=== PATIENT | female | born 1945 | race Caucasian/White ===

== ENCOUNTER 2022-12-03 09:34 | Outpatient (REF) | payer OTHER, SELFPAY ==
[2022-12-03 09:51] LABS: MANUAL DIFF FLAG NO
[2022-12-03 10:13] LABS: Basophils Absolute Auto 0.1 X10*3/uL (0.0-0.2); Basophils Percent Auto 1.4 % (0-2); Eosinophils Absolute Auto 0.3 X10*3/uL (0.0-0.4); Eosinophils Percent Auto 3.6 % (0-4); Hematocrit 44.1 % (37.0-47.0); Hemoglobin 14.7 g/dl (12.0-16.0); Imm Gran Abs Auto 0.03 X10*3/uL (0.00-0.03); Imm Gran Pct Auto 0.4 % (0.0-0.4); Lymphocytes Absolute Auto 2.6 X10*3/uL (1.2-4.9); Lymphocytes Percent Auto 35.7 % (20-40); Mean Corpuscular HGB Conc 33.3 g/dl (31.0-35.0); Mean Corpuscular Hemoglobin 28.9 pg (27.0-33.0); Mean Corpuscular Volume 86.8 fL (80.0-98.0); Mean Platelet Volume 10.4 fL (9.4-12.3); Monocytes Absolute Auto 0.5 X10*3/uL (0.1-1.2); Monocytes Percent Auto 7.4 % (2-11); Neutrophils Absolute Auto 3.7 x10*3/uL (2.0-8.3); Neutrophils Percent Auto 51.5 % (45-73); Platelet Count 369 X10*3/uL (160-400); Red Blood Count 5.08 X10*6/uL (4.20-5.50); Red Cell Distribution Width 12.4 % (11.0-16.0); White Blood Count 7.2 X10*3/uL (4.8-10.8)
[2022-12-03 10:46] LABS: Estimated Average Glucose 171 mg/dL; Hemoglobin A1c % 7.6 %
[2022-12-03 10:55] LABS: Alanine Aminotransferase 18 U/L (0-31); Albumin Level 4.2 g/dL (3.5-5.0); Alkaline Phosphatase 77 U/L (39-117); Anion Gap 15 (12-20); Aspartate Amino Transferase 16 U/L (5-31); Bilirubin Total 0.5 mg/dL (0.0-1.0); Blood Urea Nitrogen 17 mg/dL (9-16); Calcium 9.8 mg/dL (8.4-10.2); Carbon Dioxide 23 mmol/L (22-29); Chloride 105 mmol/L (96-108); Estimated Glomerular Filt Rate 56; Glucose Random 195 mg/dL (60-115); Potassium 4.6 mmol/L (3.3-5.1); Sodium 138 mmol/L (135-145); Total Protein 6.9 g/dL (6.5-8.0)
[2022-12-03 11:10] LABS: Thyroid Stimulating Hormone 2.55 uIU/mL (0.32-4.0)
[2022-12-03 12:33] LABS: Creatinine Urine 130.81 mg/dL; Microalbum/Creatinine Ratio Ur 32.1 ug/mg cr
== END 2022-12-03 09:35 | disposition home or self-care (01) ==
LOC: HO.LAB 09:34
PROVIDERS: PCP Internal Medicine; Visit Provider Internal Medicine
DX: E03.8 Other specified hypothyroidism (principal); E11.9 Type 2 diabetes mellitus without complications; E78.00 Pure hypercholesterolemia, unspecified; I10 Essential (primary) hypertension; I48.91 Unspecified atrial fibrillation
CPT/HCPCS: 36415; 80053; 82043; 83036; 84443; 85025

== ENCOUNTER 2023-02-28 08:40 | Outpatient (REF) | payer OTHER, SELFPAY ==
[2023-02-28 11:03] LABS: Alanine Aminotransferase 18 U/L (0-31); Albumin Level 4.2 g/dL (3.5-5.0); Alkaline Phosphatase 55 U/L (39-117); Anion Gap 18 (12-20); Aspartate Amino Transferase 14 U/L (5-31); Bilirubin Total 0.6 mg/dL (0.0-1.0); Blood Urea Nitrogen 28 mg/dL (9-16); Calcium 10.2 mg/dL (8.4-10.2); Carbon Dioxide 21 mmol/L (22-29); Chloride 106 mmol/L (96-108); Estimated Glomerular Filt Rate 49; Glucose Random 143 mg/dL (60-115); Potassium 4.4 mmol/L (3.3-5.1); Sodium 141 mmol/L (135-145); Total Protein 7.3 g/dL (6.5-8.0)
[2023-02-28 11:07] LABS: Thyroid Stimulating Hormone 3.25 uIU/mL (0.32-4.0)
[2023-02-28 11:10] LABS: Estimated Average Glucose 140 mg/dL; Hemoglobin A1c % 6.5 %
== END 2023-02-28 08:41 | disposition home or self-care (01) ==
LOC: HO.LAB 08:40
PROVIDERS: PCP Internal Medicine; Visit Provider Internal Medicine
DX: E03.8 Other specified hypothyroidism (principal); E11.65 Type 2 diabetes mellitus with hyperglycemia; I10 Essential (primary) hypertension; R80.8 Other proteinuria
CPT/HCPCS: 36415; 80053; 83036; 84443

== ENCOUNTER 2023-05-24 09:52 | Outpatient (REF) | payer OTHER, SELFPAY ==
[2023-05-24 11:27] LABS: Alanine Aminotransferase 18 U/L (0-31); Albumin Level 4.2 g/dL (3.5-5.0); Alkaline Phosphatase 60 U/L (39-117); Anion Gap 15 (12-20); Aspartate Amino Transferase 15 U/L (5-31); Bilirubin Total 0.5 mg/dL (0.0-1.0); Blood Urea Nitrogen 20 mg/dL (9-16); Calcium 9.9 mg/dL (8.4-10.2); Carbon Dioxide 25 mmol/L (22-29); Chloride 105 mmol/L (96-108); Estimated Glomerular Filt Rate > 60; Glucose Random 118 mg/dL (60-115); Potassium 4.2 mmol/L (3.3-5.1); Sodium 141 mmol/L (135-145); Total Protein 7.2 g/dL (6.5-8.0)
[2023-05-24 11:29] LABS: Estimated Average Glucose 137 mg/dL; Hemoglobin A1c % 6.4 % (<6.0)
== END 2023-05-24 09:53 | disposition home or self-care (01) ==
LOC: HO.10HDL 09:52
PROVIDERS: Visit Provider Internal Medicine
DX: E11.65 Type 2 diabetes mellitus with hyperglycemia (principal); I10 Essential (primary) hypertension; I48.91 Unspecified atrial fibrillation; M70.51 Other bursitis of knee, right knee; Z79.01 Long term (current) use of anticoagulants
CPT/HCPCS: 36415; 80053; 83036

== ENCOUNTER 2023-08-25 09:37 | Outpatient (REF) | payer OTHER, SELFPAY ==
[2023-08-25 10:45] LABS: MANUAL DIFF FLAG NO
[2023-08-25 10:54] LABS: Basophils Absolute Auto 0.1 X10*3/uL (0.0-0.2); Basophils Percent Auto 1.3 % (0-2); Eosinophils Absolute Auto 0.3 X10*3/uL (0.0-0.4); Eosinophils Percent Auto 4.7 % (0-4); Hematocrit 43.8 % (37.0-47.0); Hemoglobin 14.5 g/dl (12.0-16.0); Imm Gran Abs Auto 0.02 X10*3/uL (0.00-0.03); Imm Gran Pct Auto 0.3 % (0.0-0.4); Lymphocytes Percent Auto 33.1 % (20-40); Mean Corpuscular HGB Conc 33.1 g/dl (31.0-35.0); Mean Corpuscular Hemoglobin 29.5 pg (27.0-33.0); Mean Platelet Volume 10.7 fL (9.4-12.3); Monocytes Absolute Auto 0.6 X10*3/uL (0.1-1.2); Neutrophils Absolute Auto 3.2 x10*3/uL (2.0-8.3); Neutrophils Percent Auto 51.6 % (45-73); Platelet Count 361 X10*3/uL (160-400); Red Blood Count 4.92 X10*6/uL (4.20-5.50); Red Cell Distribution Width 12.4 % (11.0-16.0); White Blood Count 6.1 X10*3/uL (4.8-10.8)
[2023-08-25 10:59] LABS: Estimated Average Glucose 146 mg/dL; Hemoglobin A1c % 6.7 % (<6.0)
[2023-08-25 11:33] LABS: Alanine Aminotransferase 23 U/L (0-31); Albumin Level 4.2 g/dL (3.5-5.0); Alkaline Phosphatase 65 U/L (39-117); Anion Gap 15 (12-20); Aspartate Amino Transferase 19 U/L (5-31); Bilirubin Total 0.5 mg/dL (0.0-1.0); Blood Urea Nitrogen 18 mg/dL (9-16); Calcium 9.9 mg/dL (8.4-10.2); Carbon Dioxide 26 mmol/L (22-29); Chloride 103 mmol/L (96-108); Cholesterol 169 mg/dL (<200); Estimated Glomerular Filt Rate 57; Glucose Random 111 mg/dL (60-115); HDL Cholesterol 60 mg/dL (>40); LDL Cholesterol Calculated 82 mg/dL (<100); Potassium 4.4 mmol/L (3.3-5.1); Sodium 140 mmol/L (135-145); Total Protein 7.3 g/dL (6.5-8.0); Triglycerides 137 mg/dL (<150)
[2023-08-25 11:55] LABS: Creatinine Urine 158.97 mg/dL; Microalbum/Creatinine Ratio Ur 40.8 ug/mg cr (<30)
== END 2023-08-25 09:38 | disposition home or self-care (01) ==
LOC: HO.10HDL 09:37
PROVIDERS: Visit Provider Internal Medicine
DX: E11.65 Type 2 diabetes mellitus with hyperglycemia (principal); I10 Essential (primary) hypertension; I48.91 Unspecified atrial fibrillation; Z79.01 Long term (current) use of anticoagulants
CPT/HCPCS: 36415; 80053; 80061; 82043; 82570; 83036; 85025

== ENCOUNTER 2023-11-29 09:55 | Outpatient (REF) | payer OTHER, SELFPAY ==
[2023-11-29 11:09] LABS: Alanine Aminotransferase 21 U/L (0-31); Albumin Level 4.2 g/dL (3.5-5.0); Alkaline Phosphatase 58 U/L (39-117); Anion Gap 15 (12-20); Aspartate Amino Transferase 17 U/L (5-31); Bilirubin Total 0.5 mg/dL (0.0-1.0); Blood Urea Nitrogen 23 mg/dL (9-16); Calcium 9.8 mg/dL (8.4-10.2); Carbon Dioxide 25 mmol/L (22-29); Chloride 103 mmol/L (96-108); Estimated Glomerular Filt Rate > 60; Glucose Random 133 mg/dL (60-115); Potassium 4.3 mmol/L (3.3-5.1); Sodium 139 mmol/L (135-145); Total Protein 7.3 g/dL (6.5-8.0)
[2023-11-29 11:13] LABS: Thyroid Stimulating Hormone 4.09 uIU/mL (0.32-4.0)
[2023-11-29 15:13] LABS: Estimated Average Glucose 151 mg/dL; Hemoglobin A1c % 6.9 % (<6.0)
== END 2023-11-29 09:56 | disposition home or self-care (01) ==
LOC: HO.10HDL 09:55
PROVIDERS: Visit Provider Internal Medicine
DX: E11.9 Type 2 diabetes mellitus without complications (principal); I10 Essential (primary) hypertension; R80.8 Other proteinuria; Z00.00 Encounter for general adult medical examination without abnormal findings
CPT/HCPCS: 36415; 80053; 83036; 84443

== ENCOUNTER 2024-02-28 09:27 | Outpatient (REF) | payer MEDICARE, SELFPAY ==
[2024-02-28 09:38] LABS: MANUAL DIFF FLAG NO
[2024-02-28 09:59] LABS: Basophils Absolute Auto 0.1 X10*3/uL (0.0-0.2); Basophils Percent Auto 1.4 % (0-2); Eosinophils Absolute Auto 0.3 X10*3/uL (0.0-0.4); Eosinophils Percent Auto 3.8 % (0-4); Hematocrit 41.9 % (37.0-47.0); Hemoglobin 14.1 g/dl (12.0-16.0); Imm Gran Abs Auto 0.02 X10*3/uL (0.00-0.03); Imm Gran Pct Auto 0.3 % (0.0-0.4); Lymphocytes Absolute Auto 2.2 X10*3/uL (1.2-4.9); Lymphocytes Percent Auto 32.7 % (20-40); Mean Corpuscular HGB Conc 33.7 g/dl (31.0-35.0); Mean Corpuscular Hemoglobin 29.9 pg (27.0-33.0); Mean Corpuscular Volume 88.8 fL (80.0-98.0); Mean Platelet Volume 10.4 fL (9.4-12.3); Monocytes Absolute Auto 0.7 X10*3/uL (0.1-1.2); Monocytes Percent Auto 9.8 % (2-11); Neutrophils Absolute Auto 3.5 x10*3/uL (2.0-8.3); Platelet Count 337 X10*3/uL (160-400); Red Blood Count 4.72 X10*6/uL (4.20-5.50); Red Cell Distribution Width 12.9 % (11.0-16.0); White Blood Count 6.7 X10*3/uL (4.8-10.8)
[2024-02-28 10:09] LABS: Estimated Average Glucose 143 mg/dL; Hemoglobin A1c % 6.6 % (<6.0)
[2024-02-28 10:54] LABS: Alanine Aminotransferase 19 U/L (0-31); Albumin Level 4.2 g/dL (3.5-5.0); Alkaline Phosphatase 55 U/L (39-117); Anion Gap 14 (12-20); Aspartate Amino Transferase 18 U/L (5-31); Bilirubin Total 0.5 mg/dL (0.0-1.0); Blood Urea Nitrogen 19 mg/dL (9-16); Calcium 9.4 mg/dL (8.4-10.2); Carbon Dioxide 26 mmol/L (22-29); Chloride 104 mmol/L (96-108); Estimated Glomerular Filt Rate 54; Glucose Random 136 mg/dL (60-115); Potassium 4.6 mmol/L (3.3-5.1); Sodium 139 mmol/L (135-145); Total Protein 7.1 g/dL (6.5-8.0)
[2024-02-28 10:58] LABS: Thyroid Stimulating Hormone 4.07 uIU/mL (0.32-4.0)
== END 2024-02-28 09:28 | disposition home or self-care (01) ==
LOC: HO.LAB 09:27
PROVIDERS: PCP Internal Medicine; Visit Provider Internal Medicine
DX: E03.9 Hypothyroidism, unspecified (principal); E11.9 Type 2 diabetes mellitus without complications; I10 Essential (primary) hypertension; I48.91 Unspecified atrial fibrillation; R80.8 Other proteinuria; Z79.01 Long term (current) use of anticoagulants
CPT/HCPCS: 36415; 80053; 83036; 84443; 85025

== ENCOUNTER 2024-05-24 09:16 | Outpatient (REF) | payer MEDICARE, SELFPAY ==
[2024-05-24 11:08] LABS: Estimated Average Glucose 151 mg/dL; Hemoglobin A1C 183.8277 umol/L; Hemoglobin A1c % 6.9 % (<6.0)
[2024-05-24 11:17] LABS: Alanine Aminotransferase 20 U/L (0-31); Albumin Level 4.1 g/dL (3.5-5.0); Alkaline Phosphatase 56 U/L (39-117); Anion Gap 12 (12-20); Aspartate Amino Transferase 21 U/L (5-31); Bilirubin Total 0.5 mg/dL (0.0-1.0); Blood Urea Nitrogen 19 mg/dL (9-16); Calcium 9.6 mg/dL (8.4-10.2); Carbon Dioxide 28 mmol/L (22-29); Chloride 105 mmol/L (96-108); Estimated Glomerular Filt Rate 57; Glucose Random 132 mg/dL (60-115); Potassium 4.1 mmol/L (3.3-5.1); Sodium 141 mmol/L (135-145); Total Protein 6.8 g/dL (6.5-8.0)
[2024-05-24 11:24] LABS: Thyroid Stimulating Hormone 4.13 uIU/mL (0.32-4.0)
== END 2024-05-24 09:17 | disposition home or self-care (01) ==
LOC: HO.10HDL 09:16
PROVIDERS: Visit Provider Internal Medicine
DX: E03.9 Hypothyroidism, unspecified (principal); E11.9 Type 2 diabetes mellitus without complications; I48.91 Unspecified atrial fibrillation; Z79.01 Long term (current) use of anticoagulants
CPT/HCPCS: 36415; 80053; 83036; 84443

== ENCOUNTER 2024-09-14 08:52 | Outpatient (REF) | payer MEDICARE, SELFPAY ==
[2024-09-14 10:15] LABS: MANUAL DIFF FLAG NO
[2024-09-14 10:24] LABS: Basophils Absolute Auto 0.1 X10*3/uL (0.0-0.2); Basophils Percent Auto 1.5 % (0-2); Eosinophils Absolute Auto 0.2 X10*3/uL (0.0-0.4); Hemoglobin 14.1 g/dl (12.0-16.0); Imm Gran Abs Auto 0.01 X10*3/uL (0.00-0.03); Imm Gran Pct Auto 0.1 % (0.0-0.4); Lymphocytes Absolute Auto 2.3 X10*3/uL (1.2-4.9); Lymphocytes Percent Auto 30.9 % (20-40); Mean Corpuscular HGB Conc 32.8 g/dl (31.0-35.0); Mean Corpuscular Hemoglobin 29.3 pg (27.0-33.0); Mean Corpuscular Volume 89.4 fL (80.0-98.0); Mean Platelet Volume 10.4 fL (9.4-12.3); Monocytes Absolute Auto 0.7 X10*3/uL (0.1-1.2); Monocytes Percent Auto 9.9 % (2-11); Neutrophils Percent Auto 54.6 % (45-73); Platelet Count 326 X10*3/uL (160-400); Red Blood Count 4.81 X10*6/uL (4.20-5.50); Red Cell Distribution Width 12.9 % (11.0-16.0); White Blood Count 7.3 X10*3/uL (4.8-10.8)
[2024-09-14 11:04] LABS: Estimated Average Glucose 151 mg/dL; Hemoglobin A1C 189.4156 umol/L; Hemoglobin A1c % 6.9 % (<6.0); Total Hemoglobin (HGBA1C) 3644.2723 umol/L
[2024-09-14 11:15] LABS: Alanine Aminotransferase 25 U/L (0-31); Albumin Level 4.1 g/dL (3.5-5.0); Alkaline Phosphatase 63 U/L (39-117); Anion Gap 14 (12-20); Aspartate Amino Transferase 20 U/L (5-31); Bilirubin Total 0.6 mg/dL (0.0-1.0); Blood Urea Nitrogen 22 mg/dL (9-16); Calcium 9.1 mg/dL (8.4-10.2); Carbon Dioxide 23 mmol/L (22-29); Chloride 108 mmol/L (96-108); Cholesterol 138 mg/dL (<200); Estimated Glomerular Filt Rate 52; Glucose Random 138 mg/dL (60-115); HDL Cholesterol 57 mg/dL (>40); LDL Cholesterol Calculated 54 mg/dL (<100); Potassium 3.9 mmol/L (3.3-5.1); Sodium 141 mmol/L (135-145); Total Protein 7.2 g/dL (6.5-8.0); Triglycerides 136 mg/dL (<150)
[2024-09-14 11:26] LABS: Creatinine Urine 148.38 mg/dL; Microalbum/Creatinine Ratio Ur 185.3 ug/mg cr (<30)
[2024-09-14 11:32] LABS: Thyroid Stimulating Hormone 4.53 uIU/mL (0.32-4.0)
== END 2024-09-14 08:53 | disposition home or self-care (01) ==
LOC: HO.10HDL 08:52
PROVIDERS: Visit Provider Internal Medicine
DX: E03.9 Hypothyroidism, unspecified (principal); E11.9 Type 2 diabetes mellitus without complications; E78.00 Pure hypercholesterolemia, unspecified; Z79.01 Long term (current) use of anticoagulants
CPT/HCPCS: 36415; 80053; 80061; 82043; 82570; 83036; 84443; 85025

== ENCOUNTER 2024-12-12 08:57 | Outpatient (REF) | payer MEDICARE, SELFPAY ==
[2024-12-12 10:15] LABS: Estimated Average Glucose 157 mg/dL; Hemoglobin A1C 193.3229 umol/L; Hemoglobin A1c % 7.1 % (<6.0); Total Hemoglobin (HGBA1C) 3604.8618 umol/L
[2024-12-12 10:43] LABS: Alanine Aminotransferase 17 U/L (0-31); Alkaline Phosphatase 77 U/L (39-117); Anion Gap 17 (12-20); Aspartate Amino Transferase 22 U/L (5-31); Bilirubin Total 0.7 mg/dL (0.0-1.0); Blood Urea Nitrogen 28 mg/dL (9-16); Calcium 9.3 mg/dL (8.4-10.2); Carbon Dioxide 22 mmol/L (22-29); Chloride 107 mmol/L (96-108); Estimated Glomerular Filt Rate 45; Glucose Random 162 mg/dL (60-115); Potassium 4.3 mmol/L (3.3-5.1); Sodium 142 mmol/L (135-145)
== END 2024-12-12 08:58 | disposition home or self-care (01) ==
LOC: HO.10HDL 08:57
PROVIDERS: Visit Provider Internal Medicine
DX: E03.9 Hypothyroidism, unspecified (principal); E11.9 Type 2 diabetes mellitus without complications; E78.00 Pure hypercholesterolemia, unspecified; I34.0 Nonrheumatic mitral (valve) insufficiency; I48.91 Unspecified atrial fibrillation; Z79.01 Long term (current) use of anticoagulants
CPT/HCPCS: 36415; 80053; 83036

== ENCOUNTER 2025-03-13 08:40 | Outpatient (REF) | payer MEDICARE, SELFPAY ==
--- OUTSIDE RECORDS SUMMARY | 2025-03-13 08:57 | XMS_ITS | Encounter Summary ---
Author Organization [facility] Address [address] [place] [address] Phone Care Team Providers Care Pit Slagman Name Role Phone Whitney Monreal MD Primary Care Provi lucero Katie Pollock MD Primary Care Provid er Betsy Pineda MD Primary Care Provider Encounter Details Date Type Department Care Team (Late st Contact Info) Description 10/02/2020 Ancillary Orders Virtual Department 30 [place] [address] Whitney Monreal MD [address] [place] [address] [email or web address] Breast screening Social History Tobacco Use Types Packs/Day Years Used Date Smoking Tobacco: Never Smokeless Tobacco: Never Alcohol Use Standard Drinks/Week Comments Yes 4 (1 standard drink = 0.6 oz pur e alcohol) Comments No Sex and Gender Information Value Date Recorded Sex Assigned at Not on file Legal Sex Female 4:26 PM EST Gender Identity Not on file Sexual Orientation Not on file documented as of this encounter Plan of Treatment Upcoming Encounters Date Type Department Care Team (Late st Contact Info) Description 04/12/2024 Procedure Pass [facility] [address] [place] [address] 03/19/2025 9:15 AM EDT Appointment Echo [facility] [address] [place] [address] Nathan Yoon MD 22 [facility], [address] [place] [address] 04/11/2025 9:20 AM EDT Office Visit [facility] [address]rd Floor, [address] [place] [address] Nathan Yoon MD 22 [facility], [address] [address] [email or web address] documented as of this encounter Visit Diagnoses Diagnosis Breast screening Breast screening, unspecified documented in this encounter Care Teams Pit Slagman Relationship Specialty Start Date End Date Whitney Monreal MD [email or web address] PCP - General 05/17/1712/23 Katie Pollock MD [address] [address] [email or web address] PCP - General Family Medicine 12/24/21 1 08/24/21 Betsy Pineda MD [address] [place] [phone] PCP - General Internal Medicine 06/25/22 documented as of this encounter Additional Source Comments The information contained in this document represents components of the legal health record. It is not the complete legal health record.[facility]
[2025-03-13 11:10] LABS: Alanine Aminotransferase 25 U/L (0-31); Albumin Level 4.3 g/dL (3.5-5.0); Alkaline Phosphatase 75 U/L (39-117); Anion Gap 15 (12-20); Aspartate Amino Transferase 29 U/L (5-31); Blood Urea Nitrogen 21 mg/dL (9-16); Calcium 9.4 mg/dL (8.4-10.2); Carbon Dioxide 23 mmol/L (22-29); Chloride 107 mmol/L (96-108); Estimated Glomerular Filt Rate > 60; Potassium 4.5 mmol/L (3.3-5.1); Sodium 140 mmol/L (135-145); Total Protein 7.1 g/dL (6.5-8.0)
[2025-03-13 11:28] LABS: Hemoglobin A1C 303.1574 umol/L; Thyroid Stimulating Hormone 4.20 uIU/mL (0.32-4.0); Total Hemoglobin (HGBA1C) 5330.5711 umol/L
== END 2025-03-13 08:41 | disposition home or self-care (01) ==
LOC: HO.10HDL 08:40
PROVIDERS: Visit Provider Internal Medicine
DX: I48.0 Paroxysmal atrial fibrillation (principal); I34.0 Nonrheumatic mitral (valve) insufficiency; E03.9 Hypothyroidism, unspecified; E11.9 Type 2 diabetes mellitus without complications; L25.3 Unspecified contact dermatitis due to other chemical products
CPT/HCPCS: 36415; 80053; 83036; 84443

== ENCOUNTER 2025-06-13 09:27 | Outpatient (REF) | payer MEDICARE, SELFPAY ==
[2025-06-13 10:16] LABS: MANUAL DIFF FLAG NO
[2025-06-13 10:39] LABS: Hematocrit 39.0 % (37.0-47.0); Hemoglobin 13.1 g/dl (12.0-16.0); Imm Gran Abs Auto 0.03 X10*3/uL (0.00-0.03); Imm Gran Pct Auto 0.4 % (0.0-0.4); Lymphocytes Absolute Auto 2.2 X10*3/uL (1.2-4.9); Mean Corpuscular HGB Conc 33.6 g/dl (31.0-35.0); Mean Corpuscular Hemoglobin 30.0 pg (27.0-33.0); Mean Corpuscular Volume 89.4 fL (80.0-98.0); NRBC Abs Auto 0.000 X10*3/uL (0.0-0.012); NRBC Pct Auto 0.0 /100WBC (0.0-0.2); Platelet Count 323 X10*3/uL (160-400); Red Blood Count 4.36 X10*6/uL (4.20-5.50); White Blood Count 7.4 X10*3/uL (4.8-10.8)
--- OUTSIDE RECORDS SUMMARY | 2025-06-13 10:50 | XMS_ITS | Encounter Summary ---
Author Organization [facility] Address [address] [place] [address] [place] [address] Phone Care Team Providers Care Car Body Designer Name Role Phone Whitney Monreal MD Primary Care Provi lucero Katie Pollock MD Primary Care Provid er Betsy Pineda MD Primary Care Provider Encounter Details Date Type Department Care Team (Late st Contact Info) Description 10/02/2020 Ancillary Orders Virtual Department 30 [place] [address] Whitney Monreal MD [address] [place] [address] [email or web address] Breast screening Social History Tobacco Use Types [...] Care Team (Late st Contact Info) Description 08/14/2025 8:30 AM EST Appointment [facility] [place] [address] [facility] 3rd [place] [address] Kalani Gallegos PAJeannette [address] [place] [address] [email or web address] 08/21/2025 10:30 AM EST Office Visit [facility] 22 [facility] 3rd Floor, [address] [place] [address] Kalani Gallgeos PA-C [address] [place] [address] [email or web address] documented as of this encounter Visit Diagnoses Diagnosis Breast screening Breast screening, unspecified documented in this encounter Care Teams Car Body Designer Relationship Specialty Start Date End Date Whitney Monreal MD [email or web address] PCP - General 05/17/1712/23 Katie Pollock MD 22 [facility] [address] [place] [address] [email or web address] PCP - General Family Medicine 12/24/21 1 08/24/21 Betsy Pineda MD [address] [place] [address] [phone] PCP - General Internal Medicine 06/25/22 documented as of this encounter Additional Source Comments The information contained in this document represents components of the legal health record. It is not the complete legal health record.[facility]
--- OUTSIDE RECORDS SUMMARY | 2025-06-13 10:50 | XMS_ITS | Encounter Summary ---
Author Organization [facility] Address [address] [place] [address] [place] [address] Phone Care Team Providers Care Manifold Operator Name Role Phone Whitney Monreal MD Primary Care Provi lucero Katie Pollock MD Primary Care Provid er Betsy Pineda MD Primary Care Provider Encounter Details Date Type Department Care Team (Late st Contact Info) Description 10/01/2020 Procedure Pass [facility] 30 [place] [address] Social History Tobacco Use Types Packs/Day Years [...] 08/14/2025 8:30 AM EST Appointment [facility] [address] [place] [address] Kalani Gallegos PA-C 50 [place] [address] 08/21/2025 10:30 AM EST Office Visit [facility] [address] Floor, [address] [place] [address] Kalani Gallegos PA-C [address] [place] [address] [email or web address] documented as of this encounter Visit Diagnoses Not on filedocumented in this encounter Care Teams Manifold Operator Relationship Specialty Start Date End Date Whitney Monreal MD [email or web address] PCP - General 05/17/1712/23 Katie Pollock MD [address] [address] [email or web address] PCP - General Family Medicine 12/24/21 1 08/24/21 Betsy Pineda MD [address] [place] [address] [phone] PCP - General Internal Medicine 06/25/22 documented as of this encounter Additional Source Comments The information contained in this document represents components of the legal health record. It is not the complete legal health record.[facility]
--- OUTSIDE RECORDS SUMMARY | 2025-06-13 10:52 | XMS_ITS | Encounter Summary ---
Author Organization [facility] Address [address] [facility] [address] [place] [address] Phone Care Team Providers Care Strap Making Machine Operator Name Role Phone Katie Pollock MD Primary Care Provid er Betsy Pineda MD Primary Care Provider Reason for Visit * Reason Onset Date Comments Medication Refill 02/22/2022 Encounter Details Date Type Department Care Team (Late st Contact Info) Description 02/22/2022 [facility] [address] [place] [address] Katie Pollock MD [address] [address] [email or web address] Medication Refill Social History Tobacco Use Types Packs/Day Years Used Date Smoking Tobacco: Never Smokeless Tobacco: Never Alcohol Use Standard Drinks/Week Comments Yes 2 (1 standard drink = 0.6 oz pur e alcohol) Child or Family Care Answer Date Record ed Do you have problems with on e of the following making it difficult for you to work, study, or receive health care? No 12/24/2021 Education Answer Date Recorded Are you interested in help w ith more adult education (for example, completing high school, GED, job training, learning the Irish language, technical skills, or developing parenting skills)? I choose not to answer 12/24/2021 Are you concerned about learning? Not on file 12/24/2021 No 12/24/2021 Yes 12/24/2021 Food Answer Date Recorded Within the past 6 months we worried whether our food would run out before we got money to buy more. Often True 022 Within the past 6 months the food we bought just didn't last and we didn't have enough money to get more. Sometimes True 11/30 Residential Stability Answer Date Recor ded What is your housing situation today? I choose n ot to answer 12/24/2021 How many times have you move d in the past 12 months? Zero (I did not move) 12/24/2021 Paying for Meds Answer Date Recorded Do you have trouble paying for medicines? No 12/24/2021 Paying Utility Bills Answer Date Record ed Do you have trouble paying your heating or elect ricity bill? No 12/24/2021 Transportation Answer Date Recorded Has the lack of transportati on kept you from medical appointments or from getting medications? No 12/24/2021 Unemployment Answer Date Recorded Are you currently unemployed or working on a part-time or temporary basis, and looking for work? No 12/24/2021 Comments No Sex and Gender Information Value Date Recorded Sex Assigned at Not on file Legal Sex Female 4:26 PM EST Gender Identity Not on file Sexual Orientation Not on file documented as of this encounter Progress Notes * Sandrita Alvarenga - 02/23/2022 7:41 AM EDT BMP pended. * Katie Pollock MD - 02/22/2022 6:14 PM EDT Please pend bmp dx code htn * Tracey Mosley MA - 02/22/2022 4:24 PM EDT At least one Rx below has no protocol and needs review. INSTRUCTIONS FOR CLINICAL STAFF (Steps for MA/RN to complete): n/a Visit Info ??? Last visit: 12/24/2021 (Katie Pollock MD) > Requested f/u: Return in about 3 months (around 03/26/2022) for Recheck. ??? Upcoming visit: 04/01/2022 (Katie Pollock MD) ACTIONS TAKEN BY Tracey Mosley - Refill protocol passed: no action needed. AV Elsi Blockers Rx Protocol (on HTN Registry) ??? Visit in the past 12 months: Yes ??? Clinical criteria: - BP within last 6 months: 150/78 on 02/15/2022 - Last HR: 74 on 02/15/2022 Rx(s) without protocol Renewal is at prescriber discretion. - potassium chloride Health Maintenance Due Topic Date Due ??? HEPATITIS C SCREENING Never done ??? ZOSTER VACCINES (2 of 3) 04/17/2013 ??? DIABETIC EYE EXAM Never done ??? Adult Td,Tdap Booster 02/24/2021 ??? COVID-19 VACCINE (4 - Booster for Pfizer series) 04/15/2021 ??? HEMOGLOBIN A1C 03/23/2022 * Edi iVllela - 02/22/2022 12:15 PM EDT METOPROLOL 25mg 90 days supply and Potassium 10mg to be sent over to [facility] in [place] documented in this encounter Plan of Treatment Upcoming Encounters Date Type Department Care Team (Late st Contact Info) Description 08/14/2025 8:30 AM EST Appointment [facility] [address]rd [place] [address] Kalani Gallegos PA-C [address] [place] [address] 08/21/2025 10:30 AM EST Office Visit [facility] [address] Floor, [address] [place] [address] Kalani Gallegos PAJeannette [address] [place] [phone] [email or web address] documented as of this encounter Visit Diagnoses Diagnosis Essential hypertension- Primary Unspecified essential hypertension documented in this encounter Care Teams Strap Making Machine Operator Relationship Specialty Start Date End Date Katie Pollock MD [address] [address] [email or web address] PCP - General Family Medicine 12/24/21 1 08/24/21 Betsy Pineda MD [address] [place] [phone] PCP - General Internal Medicine 06/25/22 documented as of this encounter Additional Source Comments The information contained in this document represents components of the legal health record. It is not the complete legal health record.[facility]
--- OUTSIDE RECORDS SUMMARY | 2025-06-13 10:53 | XMS_ITS | Encounter Summary ---
Author Organization [facility] Address [address] [place] [address] [place] [address] Phone Care Team Providers Care Industrial Manufacturing Technician Name Role Phone Whitney Monreal MD Primary Care Provi lucero Katie Pollock MD Primary Care Provid er Betsy Pineda MD Primary Care Provider Encounter Details Date Type Department Care Team (Late st Contact Info) Description 04/29/2021 Transcribe Orders Virtual Department 30 [place] [address] Whitney Monreal MD [address] [place] [address] [email or web address] Breast screening (Primary Dx); Other specified disorders of bone density and structure, unspecified site Social History Tobacco Use Types Packs/Day Years [...] 08/14/2025 8:30 AM EST Appointment [facility] [address] [place] [address] Kalani Gallegos PAJeannette 50 [place] [address] 08/21/2025 10:30 AM EST Office [facility] 3[facility], [address] [place] [address] Kalani Gallegos PA-C 50 [place] [address] documented as of this encounter Results * BD DXA AXIAL (SPINE) WITH HIP (06/30/2021 2:08 PM EST) Anatomical Region Laterality Modality Bone Density Bone Density 06/30/2021 3:05 PM EST Impressions 06/30/2021 3:43 PM EST Normal lumbar spine and bilateral hip bone density. Mild mild increase in lumbar spine bone density and minimal decrease in bilateral hip bone density since 2013. Narrative 06/30/2021 3:43 PM EST COMPARISON: 09/11/2013. BONE DENSITY FINDINGS: History: This is a 75-year-old postmenopausal female. Evaluation of the lumbar spine and hips was performed and felt to be technically adequate. L3-L4 vertebral bodies total bone mineral density was calculated at 1.110 gm/cm2 with a T-score of 0.1 falling within the WHO classification of normal. Z-score of 2.5. 11.7% increase in bone density which is statistically significant. Right femoral neck bone mineral density was calculated at 0.967 gm/cm2 with a T- score of 1.1 falling within the WHO classification of normal. Z-score of 3.1. Total Right hip bone mineral density was calculated at 1.043 gm/cm2 with a T- score of 0.8 falling within the WHO classification of normal. Z-score of 2.5. 2.7% decrease in bone density which is statistically significant. Left femoral neck bone mineral density was calculated at 0.879 gm/cm2 with a T- score of 0.3 falling within the WHO classification of normal. Z-score of 2.3. Total Left hip bone mineral density was calculated at 0.993 gm/cm2 with a T- score of 0.4 falling within the WHO classification of normal. Z-score of 2.1. 5.7% decrease in bone density which is statistically significant. Procedure Note Deni Lau MD - 06/30/2021 COMPARISON: 09/11/2013. BONE DENSITY FINDINGS: History: This is a 75-year-old postmenopausal female. Evaluation of the lumbar spine and hips was performed and felt to betechnically adequate. L3-L4 vertebral bodies total bone mineral density was calculated at 1.110gm/cm2 with a T-score of 0.1 falling within the WHO classification ofnormal. Z-score of 2.5. 11.7% increase in bone density which isstatistically significant. Right femoral neck bone mineral density was calculated at 0.967 gm/va7pzww a T- score of 1.1 falling within the WHO classification of normal.Z-score of 3.1. Total Right hip bone mineral density was calculated at 1.043 gm/cm2 with aT- score of 0.8 falling within the WHO classification of normal. Z-scoreof 2.5. 2.7% decrease in bone density which is statisticallysignificant. Left femoral neck bone mineral density was calculated at 0.879 gm/cm2 witha T- score of 0.3 falling within the WHO classification of normal.Z-score of 2.3. Total Left hip bone mineral density was calculated at 0.993 gm/cm2 with aT-score of 0.4 falling within the WHO classification of normal. Z-scoreof 2.1. 5.7% decrease in bone density which is statisticallysignificant. IMPRESSION: Normal lumbar spine and bilateral hip bone density. Mild mild increase inlumbar spine bone density and minimal decrease in bilateral hip bonedensity since 2013. Whitney QUEZADA BD BONE DENSITY DEXA Final Result * BI MAMMOGRAM SCREENING WITH TOMOSYNTHESIS WITH CAD (BILATERAL) (06/30/2021 1:50 PM EST) Anatomical Region Laterality Modality Breast Left, Breast Right, Breast Bilateral Bila teral Mammography 06/30/2021 2:08 PM EST Impressions 06/30/2021 2:11 PM EST No findings suspicious for malignancy are identified. In the absence of a worrisome palpable abnormality, annual screening mammography is recommended. BI-RADS CATEGORY: 1 - Negative. DENSITY: There are scattered fibroglandular densities. Narrative 06/30/2021 2:11 PM EST COMPARISON: 06/26/2008 through 02/15/2018 Bilateral 3-D tomosynthesis with 2-D reconstructions in the CC and MLO projection. Computer-aided detection system was utilized. No new mass, asymmetry, architectural distortion or suspicious calcifications have become apparent on either side. Procedure Note Hilton Carrion MD - 06/30/2021 COMPARISON: 06/26/2008 through 02/15/2018 Bilateral 3-D tomosynthesis with 2-D reconstructions in the CC and MLOprojection. Computer-aided detection system was utilized. No new mass, asymmetry, architectural distortion or suspiciouscalcifications have become apparent on either side. IMPRESSION: No findings suspicious for malignancy are identified. In the absence of aworrisome palpable abnormality, annual screening mammography isrecommended. BI-RADS CATEGORY: 1 - Negative. DENSITY: There are scattered fibroglandular densities. Whitney Monreal MD [facility] Fin al Result documented in this encounter Visit Diagnoses Diagnosis Breast screening- Primary Breast screening, unspecified Other specified disorders of bone density and structure, unspecified site Other specified disorders of bone density and structure, unspecified site Breast screening Breast screening, unspecified documented in this encounter Care Teams Industrial Manufacturing Technician Relationship Specialty Start Date End Date Whitney Monreal MD [email or web address] PCP - General 05/17/1712/23 Katie Pollock MD 22 [facility] [address] [place] [address] [email or web address] PCP - General Family Medicine 12/24/21 1 08/24/21 Betsy Pineda MD [address] [phone] PCP - General Internal Medicine 06/25/22 documented as of this encounter Additional Source Comments The information contained in this document represents components of the legal health record. It is not the complete legal health record.[facility]
--- OUTSIDE RECORDS SUMMARY | 2025-06-13 10:54 | XMS_ITS | Encounter Summary ---
Author Organization [facility] Address [address] [place] [address] [place] [address] Phone Care Team Providers Care Proposal Manager Writer Name Role Phone Whitney Monreal MD Primary Care Provi lucero Katie Pollock MD Primary Care Provid er Betsy Pineda MD Primary Care Provider Encounter Details Date Type Department Care Team (Late st Contact Info) Description 09/28/2018 Procedure Pass [facility] Endoscopy Admitting Dept Virtual Department 30 [place] [address] Social History Tobacco Use Types Packs/Day Years [...] Appointment [facility] [address] [place] [address] Kalani Gallegos PA-C [address] [place] [address] 08/21/2025 10:30 AM EST Office Visit [facility] [address] Floor, [address] [place] [address] Kalani Gallegos PA-C 50 [place] [address] [email or web address] documented as of this encounter Visit Diagnoses Not on filedocumented in this encounter Care Teams Proposal Manager Writer Relationship Specialty Start Date End Date Whitney Monreal MD [email or web address] PCP - General 05/17/1712/23 Katie Pollock MD [address] [address] [email or web address] PCP - General Family Medicine 12/24/21 1 08/24/21 Betsy Pineda MD [address] [place] [phone] PCP - General Internal Medicine 06/25/22 documented as of this encounter Additional Source Comments The information contained in this document represents components of the legal health record. It is not the complete legal health record.[facility]
--- OUTSIDE RECORDS SUMMARY | 2025-06-13 10:54 | XMS_ITS | Encounter Summary ---
Author Organization [facility] Address [address] [place] [phone] Phone Care Team Providers Care Local Intermodal Truck Driver Name Role Phone Whitney Monreal MD Primary Care Provi lucero Katie Pollock MD Primary Care Provid er Betsy Pineda MD Primary Care Provider Encounter Details Date Type Department Care Team (Late st Contact Info) Description 06/01/2017 Transcribe Orders [facility] Lab Main [address] [place] [address] Whitney Monreal MD [address] [place] [address] [email or web address] Hypothyroidism, unspecified type (Primary Dx); Controlled diabetes mellitus type 2 with complications, unspecified terminal carman insulin use status Social History Tobacco Use Types Packs/Day Years Used Date Smoking Tobacco: Never Assessed Comments Unknown Sex and Gender Information Value Date Recorded Sex Assigned at Not on file Legal Sex Female 4:26 PM EST Gender Identity Not on file Sexual Orientation Not on file documented as of this encounter Plan of Treatment Upcoming Encounters Date Type Department Care Team (Late st Contact Info) Description 08/14/2025 8:30 AM EST Appointment [facility] [place] [facility] 3[facility] [place] [address] Kalani Gallegos PAJeannette [address] [place] [address] [email or web address] 08/21/2025 10:30 AM EST Office Visit [facility] [address] 3[address] Floor, [address] [place] [address] Kalani Gallegos PA-C 50 [place] [address] documented as of this encounter Results * (ABNORMAL) Hemoglobin A1c (06/01/2017 8:47 AM EDT) HEMOGLOBIN A1C 6.9(H) 4.3 - 5.8 % [facility] Blood 06/01/2017 8:47 AM EDT 06/01/2017 1:17 PM EDT us Whitney Monreal MD LAB BLOOD BKR ORDER ANNETTE Final Result [address] [address] * TSH with reflex (06/01/2017 8:47 AM EDT) TSH 2.97 0.27 - 4.20 uIU/mL [facility] Blood 06/01/2017 8:47 AM EDT 06/01/2017 1:17 PM EDT us Whitney Monreal MD LAB BLOOD BKR ORDER ANNETTE Edited Result - Final [address] [address] * (ABNORMAL) Lipid panel (06/01/2017 8:47 AM EDT) HDL 69 mg/dL [facility] Comment: Interpretation: Risk Level Females Decreased >55mg/dL Average 50-55 mg/dL Increased <50 mg/dL CHOLESTEROL 214 0 - 240 mg/dL [facility] TRIGLYCERIDES 147 30 - 160 mg/dL [facility] LDL 116 50 - 129 mg/dL [facility] Comment: LDL levels in terms of risk for coronary heart disease: <100 mg/dL: Optimal 100-129 mg/dL: Near or above optimal 130-159 mg/dL: Borderline high 160-189 mg/dL: High >190 mg/dL: Very High CARDIAC RISK RATIO 3.1(L) 3.3 - 4.4 [facility] Blood 06/01/2017 8:47 AM EDT 06/01/2017 1:17 PM EDT us Whitney Monreal MD LAB BLOOD BKR ORDER ANNETTE Final Result [address] [address] * (ABNORMAL) Comprehensive metabolic panel (06/01/2017 8:47 AM EDT) SODIUM 138 133 - 146 mmol/L [facility] POTASSIUM 3.9 3.3 - 5.1 mmol/L [facility] CHLORIDE 97 96 - 108 mmol/L [facility] CO2 30 21 - 35 mmol/L [facility] BUN 18 6 - 19 mg/dL [facility] CREATININE 0.80 0.5 - 1.5 mg/dL [facility] GLUCOSE 155(H) 70 - 99 mg/dL [facility] ALBUMIN 4.3 3.9 - 4.8 g/dL [facility] TOTAL PROTEIN 6.7 6.5 - 8.0 g/dL [facility] CALCIUM 9.6 8.4 - 10.3 mg/dL [facility] ALKALINE PHOSPHATASE 62 39 - 117 U/L [facility] TOTAL BILIRUBIN 0.5 0 - 1.2 mg/dL [facility] AST 28 0 - 37 U/L [facility] ALT 40 0 - 40 U/L [facility] GLOBULIN 2.4 1 - 4.8 g/dL [facility] EGFR >60 >60 mL/min/1.7 3m2 [facility] Comment:Abnormal if <60. If patient is -Lithuanian, multiply the result by 1.21. ANION GAP 15 10 - 20 mmol/L [facility] Blood 06/01/2017 8:47 AM EDT 06/01/2017 1:17 PM EDT us Whitney [place] MD LAB BLOOD BKR ORDER ANNETTE Final Result [facility] [address] [place] [address] documented in this encounter Visit Diagnoses Diagnosis Hypothyroidism, unspecified type- Primary Controlled diabetes mellitus type 2 with complications, unspecified terminal carman insulin use status documented in this encounter Care Teams Local Intermodal Truck Driver Relationship Specialty Start Date End Date Whitney Monreal MD [email or web address] PCP - General 05/17/1712/23 Katie Pollock MD [address] [place] [address] [email or web address] PCP - General Family Medicine 12/24/21 1 08/24/21 Betsy Pineda MD [address] [place] [address] [place] [phone] PCP - General Internal Medicine 06/25/22 documented as of this encounter Additional Source Comments The information contained in this document represents components of the legal health record. It is not the complete legal health record.[facility]
--- OUTSIDE RECORDS SUMMARY | 2025-06-13 10:54 | XMS_ITS | Encounter Summary ---
Author Organization [facility] Address [address] [place] [address] [place] [address] Phone Care Team Providers Care Sludge Filtration Attendant Name Role Phone Whitney Monreal MD Primary Care Provi lucero Katie Pollock MD Primary Care Provid er Betsy Pineda MD Primary Care Provider Encounter Details Date Type Department Care Team (Late st Contact Info) Description 04/04/2018 Transcribe Orders [facility] Phleb Main 30 [place] [address] Whitney [place]real MD 7[address] [place], [place] [phone] [email or web address] Type 2 diabetes mellitus with complication, unspecified whether dedicated intermodal truck driver insulin use (Primary Dx) Social History Tobacco Use Types Packs/Day Years Used Date Smoking Tobacco: Never Smokeless Tobacco: Never Alcohol Use Standard Drinks/Week Comments Yes 0 (1 standard drink = 0.6 oz pur [...] 08/14/2025 8:30 AM EST Appointment [facility] 3rd [place] [address] Kalani Gallegos PAJeannette 50 [place] [address] 08/21/2025 10:30 AM EST Office Visit [facility] [address] 3[address] Floor, [address] [place] [address] Kalani Gallegos PA-C 50 [place] [address] documented as of this encounter Results * (ABNORMAL) Hemoglobin A1c (04/04/2018 11:27 AM EDT) [facility] HEMOGLOBIN A1C 6.8(H) 4.3 - 5.8 % [facility] Blood 04/04/2018 11:2 7 AM EDT 04/04/2018 11:33 AM EDT us Whitney [place] MD LAB BLOOD BKR ORDER ANNETTE Final Result [facility] 30 [place] [address] * (ABNORMAL) CBC and differential (04/04/2018 11:27 AM EDT) [facility] WBC 7.50 3.40 - 11.20 K/uL [facility] RBC 5.01(H) 3.80 - 4.80 M/uL [facility] HGB 15.1(H) 12.0 - 15.0 g/dL [facility] HCT 42.8 36.0 - 46.0 % [facility] PLT 335 130 - 400 K/uL [facility] MCV 85.4 79.0 - 98.0 fL [facility] MCH 30.1 27.0 - 34.8 pg [facility] MCHC 35.3 31.5 - 36.0 g/dL [facility] RDW 12.2 10.8 - 14.6 % [facility] MPV 10.3 9.4 - 12.4 fl [facility] NRBC 0.00 /100 WBCs [facility] ABSOLUTE NRBC 0.00 K/uL [facility] DIFF METHOD Auto [facility] NEUTS 46.9 45.30 - 77.70 % [facility] LYMPHS 36.5 12.30 - 39.70 % [facility] MONOS 10.4 4.10 - 12.80 % [facility] EOS 4.5 0 - 7.2 % [facility] BASOS 1.3 0 - 2.80 % [facility] Granulocytes, immature (%) 0.4 0.0 - 0.9 % [facility] ABSOLUTE NEUTS 3.51 1.40 - 7.70 K/uL [facility] ABSOLUTE LYMPHS 2.74 0.60 - 3.20 K/uL [facility] ABSOLUTE MONOS 0.78(H) 0.11 - 0.59 K/uL [facility] ABSOLUTE EOS 0.34 0.01 - 0.50 K/uL [facility] ABSOLUTE BASOS 0.10(H) 0.00 - 0.08 K/uL [facility] Granulocytes, immature 0.03 0.00 - 0.05 K/uL [facility] Blood 04/04/2018 11:2 7 AM EDT 04/04/2018 11:33 AM EDT us Whitney [place] MD LAB BLOOD BKR ORDER ANNETTE Final Result Performing Organization Address City/[facility]/ZIP Co de Phone Number [address] [address] * TSH with reflex (04/04/2018 11:27 AM EDT) TSH 2.66 0.27 - 4.20 uIU/mL [facility] Blood 04/04/2018 11:2 7 AM EDT 04/04/2018 11:33 AM EDT us Whitney [place] MD LAB BLOOD BKR ORDER ANNETTE Final Result Performing Organization Address City/[facility]/ZIP Co de Phone Number [address] [address] * (ABNORMAL) Lipid panel (04/04/2018 11:27 AM EDT) HDL 78 mg/dL [facility] Comment: Interpretation: Risk Level Females Decreased >55mg/dL Average 50-55 mg/dL Increased <50 mg/dL CHOLESTEROL 179 0 - 240 mg/dL [facility] TRIGLYCERIDES 122 30 - 160 mg/dL [facility] LDL 77 50 - 129 mg/dL [facility] Comment: LDL levels in terms of risk for coronary heart disease: <100 mg/dL: Optimal 100-129 mg/dL: Near or above optimal 130-159 mg/dL: Borderline high 160-189 mg/dL: High >190 mg/dL: Very High CARDIAC RISK RATIO 2.3(L) 3.3 - 4.4 C [facility] Blood 04/04/2018 11:2 7 AM EDT 04/04/2018 11:33 AM EDT us Whitney [place]real MD LAB BLOOD BKR ORDER ANNETTE Final Result [facility] 30 [place] [address] * (ABNORMAL) Comprehensive metabolic panel (04/04/2018 11:27 AM EDT) SODIUM 139 133 - 146 mmol/L [facility] POTASSIUM 3.7 3.3 - 5.1 mmol/L [facility] CHLORIDE 97 96 - 108 mmol/L [facility] CO2 23 21 - 35 mmol/L [facility] BUN 16 6 - 19 mg/dL [facility] CREATININE 0.70 0.5 - 1.5 mg/dL [facility] GLUCOSE 111(H) 70 - 99 mg/dL [facility] ALBUMIN 4.6 3.9 - 4.8 g/dL [facility] TOTAL PROTEIN 7.3 6.5 - 8.0 g/dL [facility] CALCIUM 9.8 8.4 - 10.3 mg/dL [facility] ALKALINE PHOSPHATASE 60 39 - 117 U/L [facility] TOTAL BILIRUBIN 0.6 0.0 - 1.2 mg/dL [facility] AST 28 0 - 37 U/L [facility] ALT 31 0 - 40 U/L [facility] GLOBULIN 2.7 1 - 4.8 g/dL [facility] EGFR 88 >59 mL/min/1.7 3m2 [facility] Comment:If patient is black, multiply result by 1.159. Estimated glomerular filtration rate calculated using the CKD-EPI equation. ANION GAP 23(H) 10 - 20 mmol/L [facility] Blood 04/04/2018 11:2 7 AM EDT 04/04/2018 11:33 AM EDT us Whitney [place]real MD LAB BLOOD BKR ORDER ANNETTE Final Result [facility] 30 [place] [address] documented in this encounter Visit Diagnoses Diagnosis Type 2 diabetes mellitus with complication, unspecified whether dedicated intermodal truck driver insulin use- Primary documented in this encounter Care Teams Sludge Filtration Attendant Relationship Specialty Start Date End Date Whitney Monreal MD [email or web address] PCP - General 05/17/1712/23 Katie Pollock MD [address] [address] [email or web address] PCP - General Family Medicine 12/24/21 1 08/24/21 Betsy Pineda MD [address] [place] [address] Dr [address] [place] [phone] PCP - General Internal Medicine 06/25/22 documented as of this encounter Additional Source Comments The information contained in this document represents components of the legal health record. It is not the complete legal health record.[facility]
--- OUTSIDE RECORDS SUMMARY | 2025-06-13 10:54 | XMS_ITS | Encounter Summary ---
Author Organization [facility] Address [address] [place] [phone] Phone Care Team Providers Care Fur Liner Name Role Phone Whitney Monreal MD Primary Care Provi lucero Katie Pollock MD Primary Care Provid er Betsy Pineda MD Primary Care Provider Encounter Details Date Type Department Care Team (Late st Contact Info) Description 07/29/2021 Transcribe Orders [address] [phone] Whitney Monreal MD [address] [place] [address] [phone] [email or web address] Type 2 diabetes mellitus without complication, unspecified whether halfway insulin use (Primary Dx); Osteopenia, unspecified location Social History Tobacco Use Types Packs/Day Years [...] 08/14/2025 8:30 AM EST Appointment [facility] [place] [address] 3rd Floor [place], [place] [phone] Kalani Gallegos PA-C 50 [place] [address] [email or web address] 08/21/2025 10:30 AM EST Office Visit [facility] [address] Floor, [address] [place] [address] Kalani Gallegos PA-C 50 [place] [address] documented as of this encounter Results * (ABNORMAL) Hemoglobin A1c (07/29/2021 9:20 AM EST) HEMOGLOBIN A1C 7.3(H) 4.3 - 5.8 % [facility] Blood 07/29/2021 9:20 AM EST 07/29/2021 9:44 AM EST us Whitney Monreal MD LAB BLOOD BKR ORDER ANNETTE Final Result [address] [address] * Parathyroid hormone (PTH) (07/29/2021 9:20 AM EST) PARATHYROID HORMONE 37 15 - 65 pg/mL [facility] Blood 07/29/2021 9:20 AM EST 07/29/2021 9:43 AM EST us Whitney Monreal MD LAB BLOOD BKR ORDER ANNETTE Final Result [address] [address] * 25-OH vitamin D (07/29/2021 9:20 AM EST) 25 OH VIT D (TOTAL) 34 30 - 60 ng/mL [facility] Blood 07/29/2021 9:20 AM EST 07/29/2021 9:44 AM EST us Whitney Monreal MD LAB BLOOD BKR ORDER ANNETTE Final Result Performing Organization Address City/[facility]/ZIP Co de Phone Number [address] [address] * (ABNORMAL) Basic metabolic panel (07/29/2021 9:20 AM EST) SODIUM 138 133 - 146 mmol/L [facility] CHLORIDE 101 96 - 108 mmol/L [facility] POTASSIUM 4.2 3.3 - 5.1 mmol/L [facility] CO2 24 21 - 35 mmol/L [facility] BUN 20(H) 6 - 19 mg/dL [facility] CREATININE 0.80 0.5 - 1.5 mg/dL [facility] GLUCOSE 139(H) 70 - 99 mg/dL [facility] CALCIUM 9.5 8.4 - 10.3 mg/dL [facility] EGFR 78 >59 mL/min/1.7 3m2 [facility] Comment:Estimated glomerular filtration rate calculated using the CKD-EPI refit equation. ANION GAP 17 10 - 20 mmol/L [facility] Blood 07/29/2021 9:20 AM EST 07/29/2021 9:44 AM EST us Whitney Monreal MD LAB BLOOD BKR ORDER ANNETTE Final Result Performing Organization Address City/[facility]/ZIP Co de Phone Number [address] [address] documented in this encounter Visit Diagnoses Diagnosis Type 2 diabetes mellitus without complication, unspecified whether meterman insulin use- Primary Osteopenia, unspecified location documented in this encounter Care Teams Fur Liner Relationship Specialty Start Date End Date Whitney Monreal MD [email or web address] PCP - General 05/17/1712/23 Katie Pollock MD 22 [facility] [address] [place] [address] [email or web address] PCP - General Family Medicine 12/24/21 1 08/24/21 Betsy Pineda MD [address] [place] [address] [address] [place] [phone] PCP - General Internal Medicine 06/25/22 documented as of this encounter Additional Source Comments The information contained in this document represents components of the legal health record. It is not the complete legal health record.[facility]
--- OUTSIDE RECORDS SUMMARY | 2025-06-13 10:54 | XMS_ITS | Encounter Summary ---
Author Organization [facility] Address [address] [facility] [address] [place] [phone] Phone Care Team Providers Care Medical Scribe Name Role Phone Betsy Pineda MD Primary Care Provider Encounter Details Date Type Department Care Team (Late st Contact Info) Description 09/17/2022 Procedure Pass Echo Lab [place] [place] [address] Social History Tobacco Use Types Packs/Day Years [...] high school, GED, job training, learning the [place] language, technical skills, or developing parenting skills)? [...] 08/14/2025 8:30 AM EST Appointment [facility] [place] [place] [address] Kalani Gallegos PA-C [address] [place] [phone] 08/21/2025 10:30 AM EST Office Visit [facility] [address] [facility], [address] [place] [address] Kalani Gallegos PA-C [address] [place] [address] documented as of this encounter Visit Diagnoses Not on filedocumented in this encounter Care Teams Medical Scribe Relationship Specialty Start Date End Date Betsy Pineda MD [address] [place] [address] [place] [phone] PCP - General Internal Medicine 06/25/22 documented as of this encounter Additional Source Comments The information contained in this document represents components of the legal health record. It is not the complete legal health record.[facility]
--- OUTSIDE RECORDS SUMMARY | 2025-06-13 10:54 | XMS_ITS | Encounter Summary ---
Author Organization [facility] Address [address] [place] [address] [place] [address] Phone Care Team Providers Care Sap Abap Developer Name Role Phone Whitney Monreal MD Primary Care Provi lucero Katie Pollock MD Primary Care Provid er Betsy Pineda MD Primary Care Provider Encounter Details Date Type Department Care Team (Late st Contact Info) Description 06/01/2017 Transcribe Orders [facility] Lab Main [address] [place], [place] [phone] Deni Young MD Social History Tobacco Use Types Packs/Day Years [...] 8:30 AM EST Appointment [facility] [address] [place] [address] Kalani Gallegos PAJeannette [address] [place] [phone] 08/21/2025 10:30 AM EST Office Visit [facility] [address], [address] [place] [address] Kalani Gallegos PA-C [address] [place] [phone] [email or web address] documented as of this encounter Visit Diagnoses Not on filedocumented in this encounter Care Teams Sap Abap Developer Relationship Specialty Start Date End Date Whitney Monreal MD [email or web address] PCP - General 05/17/1712/23 Katie Pollock MD [address] [address] [email or web address] PCP - General Family Medicine 12/24/21 1 08/24/21 Betsy Pineda MD [address] [place] [phone] PCP - General Internal Medicine 06/25/22 documented as of this encounter Additional Source Comments The information contained in this document represents components of the legal health record. It is not the complete legal health record.[facility]
--- OUTSIDE RECORDS SUMMARY | 2025-06-13 10:54 | XMS_ITS | Encounter Summary ---
Author Organization [facility] Address [address] [place] [address] [place] [phone] Phone Care Team Providers Care Preventive Maintenance Engineer Name Role Phone Whitney Monreal MD Primary Care Provi lucero Katie Pollock MD Primary Care Provid er Betsy Pineda MD Primary Care Provider Encounter Details Date Type Department Care Team (Late st Contact Info) Description 06/11/2019 Transcribe Orders [address] [address] Whitney Monreal MD [address] [place] [address] [email or web address] Hypertension, unspecified type (Primary Dx); Hyperlipidemia, unspecified hyperlipidemia type; Hypothyroidism, unspecified type Social History Tobacco Use Types Packs/Day Years [...] 8:30 AM EST Appointment [facility] [address] [place] [address] Kalani Gallegos PA-C 50 [place] [address] [email or web address] 08/21/2025 10:30 AM EST Office Visit [facility] [address] [place] [address] Dr 3[address] Floor, [address] [place] [address] Kalani Gallegos PA-C 50 [place] [address] [email or web address] documented as of this encounter Results * (ABNORMAL) Hemoglobin A1c (06/11/2019 8:44 AM EST) HEMOGLOBIN A1C 7.7(H) 4.3 - 5.8 % [facility] Blood 06/11/2019 8:44 AM EST 06/11/2019 8:51 AM EST Whitney Monreal MD LAB BLOOD BKR ORDER ANNETTE Final Result [address] [address] * TSH with reflex (06/11/2019 8:44 AM EST) Pathologist [facility] TSH 3.25 0.27 - 4.20 uIU/mL [facility] Blood 06/11/2019 8:44 AM EST 06/11/2019 8:51 AM EST us Whitney Monreal MD LAB BLOOD BKR ORDER ANNETTE Final Result [address] [address] * (ABNORMAL) Lipid panel (06/11/2019 8:44 AM EST) HDL 69 mg/dL [facility] Comment: Interpretation <40 mg/dL: Low HDL cholesterol (major risk factor for CHD) Greater than or equal to 60 mg/dL: High HDL cholesterol ( negative risk factor for CHD) HDL - cholesterol is affected by a number of factors, e.g. smoking, excerise, hormones, sex and age. CHOLESTEROL 164 0 - 240 mg/dL [facility] TRIGLYCERIDES 125 30 - 160 mg/dL [facility] LDL 70 50 - 129 mg/dL [facility] Comment: LDL levels in terms of risk for coronary heart disease: <100 mg/dL: Optimal 100-129 mg/dL: Near or above optimal 130-159 mg/dL: Borderline high 160-189 mg/dL: High >190 mg/dL: Very High CARDIAC RISK RATIO 2.4(L) 3.3 - 4.4 [facility] Blood 06/11/2019 8:44 AM EST 06/11/2019 8:51 AM EST us Whitney Monreal MD LAB BLOOD BKR ORDER ANNETTE Final Result [address] [address] * (ABNORMAL) Basic metabolic panel (06/11/2019 8:44 AM EST) SODIUM 137 133 - 146 mmol/L [facility] CHLORIDE 100 96 - 108 mmol/L [facility] POTASSIUM 4.0 3.3 - 5.1 mmol/L [facility] CO2 24 21 - 35 mmol/L [facility] BUN 21(H) 6 - 19 mg/dL [facility] CREATININE 0.80 0.5 - 1.5 mg/dL [facility] GLUCOSE 154(H) 70 - 99 mg/dL [facility] CALCIUM 9.7 8.4 - 10.3 mg/dL [facility] EGFR 74 >59 mL/min/1.7 3m2 [facility] Comment:If patient is black, multiply result by 1.159. Estimated glomerular filtration rate calculated using the CKD-EPI equation. ANION GAP 17 10 - 20 mmol/L [facility] Blood 06/11/2019 8:44 AM EST 06/11/2019 8:51 AM EST us Whitney Monreal MD LAB BLOOD BKR ORDER ANNETTE Final Result [address] [address] documented in this encounter Visit Diagnoses Diagnosis Hypertension, unspecified type- Primary Hyperlipidemia, unspecified hyperlipidemia type Hypothyroidism, unspecified type documented in this encounter Care Teams Preventive Maintenance Engineer Relationship Specialty Start Date End Date Whitney Monreal MD [email or web address] PCP - General 05/17/1712/23 Katie Pollock MD [address] [place] [address] [email or web address] PCP - General Family Medicine 12/24/21 1 08/24/21 Betsy Pineda MD [address] [place] [phone] PCP - General Internal Medicine 06/25/22 documented as of this encounter Additional Source Comments The information contained in this document represents components of the legal health record. It is not the complete legal health record.[facility]
--- OUTSIDE RECORDS SUMMARY | 2025-06-13 10:54 | XMS_ITS | Encounter Summary ---
Author Organization [facility] Address [address] [place] [address] [place] [phone] Phone Care Team Providers Care Procurement Director Name Role Phone Whitney Monreal MD Primary Care Provi lucero Katie Pollock MD Primary Care Provid er Betsy Pineda MD Primary Care Provider Encounter Details Date Type Department Care Team (Late st Contact Info) Description 01/17/2018 Ancillary Orders Virtual Department [address] [place] [address] Whitney Monreal MD [address] [place] [address] [email or web address] Breast screening Social History Tobacco Use Types [...] 8:30 AM EST Appointment [facility] [address] [place] [address] Kalani Gallegos PA-C [address] [place] [phone] 08/21/2025 10:30 AM EST Office Visit [facility] [address] Floor, [address] [place] [address] Kalani Gallegos PA-C [address] [place] [phone] [email or web address] documented as of this encounter Results * BI MAMMOGRAM SCREENING WITH TOMOSYNTHESIS WITH CAD (BILATERAL) (02/15/2018 3:30 PM EDT) Anatomical Region Laterality Modality Breast Left, Breast Right, Breast Bilateral Bila teral Mammography 02/16/2018 8:39 AM EDT Impressions 02/16/2018 8:42 AM EDT No mammographic change indicative of malignancy. Routine screening is recommended. BI-RADS CATEGORY: 2 - Benign finding. DENSITY: There are scattered fibroglandular densities. POS - CDHMAM2 Narrative 02/16/2018 8:42 AM EDT FINDINGS: Bilateral full-field digital screening mammography is obtained and read in conjunction with computer-aided detection. 3-D tomosynthesis as well as 2-D C view imaging is also performed. Comparison includes the most recent exam from 05/07/2015 and as far back as 02/10/2007. Breasts are composed of scattered fibroglandular tissue. Stable bilateral nodularity. Scattered benign-appearing micro and macrocalcifications and also vascular calcifications. No new suspicious mass, suspicious microcalcifications, architectural distortion, focal skin thickening, or new asymmetry is detected. Procedure Note Tomer Hobbs MD - 02/16/2018 FINDINGS: Bilateral full-field digital screening mammography is obtained and read inconjunction with computer-aided detection. 3-D tomosynthesis as well as2-D C view imaging is also performed. Comparison includes the most recentexam from 05/07/2015 and as far back as 02/10/2007. Breasts are composed of scattered fibroglandular tissue. Stable bilateralnodularity. Scattered benign-appearing micro and macrocalcifications andalso vascular calcifications. No new suspicious mass, suspiciousmicrocalcifications, architectural distortion, focal skin thickening, ornew asymmetry is detected. IMPRESSION: No mammographic change indicative of malignancy. Routine screening isrecommended. BI-RADS CATEGORY: 2 - Benign finding. DENSITY: There are scattered fibroglandular densities. POS - CDHMAM2 Whitney Monreal MD IMG MG EXAMS Fin al Result documented in this encounter Visit Diagnoses Diagnosis Breast screening Breast screening, unspecified Breast screening Breast screening, unspecified documented in this encounter Care Teams Procurement Director Relationship Specialty Start Date End Date Whitney Monreal MD [email or web address] PCP - General 05/17/1712/23 Katie Pollock MD [address] [address] [email or web address] PCP - General Family Medicine 12/24/21 1 08/24/21 Betsy Pineda MD [address] [place] [address] [phone] PCP - General Internal Medicine 06/25/22 documented as of this encounter Additional Source Comments The information contained in this document represents components of the legal health record. It is not the complete legal health record.[facility]
--- OUTSIDE RECORDS SUMMARY | 2025-06-13 10:54 | XMS_ITS | Encounter Summary ---
Author Organization [facility] Address [address] [place] [phone] Phone Care Team Providers Care Acting Instructor Name Role Phone Whitney Monreal MD Primary Care Provi lucero Katie Pollock MD Primary Care Provid er Betsy Pineda MD Primary Care Provider Encounter Details Date Type Department Care Team (Late st Contact Info) Description 04/29/2021 Procedure [facility], [address] [address] Social History Tobacco Use Types Packs/Day Years [...] 08/14/2025 8:30 AM EST Appointment [facility] [address] [place], [place] [phone] Kalani Gallegos PA-C [address] [place] [phone] 08/21/2025 10:30 AM EST Office Visit [facility] [address], [address] [place] [address] Kalani Gallegos PA-C [address] [place] [address] [email or web address] documented as of this encounter Visit Diagnoses Not on filedocumented in this encounter Care Teams Acting Instructor Relationship Specialty Start Date End Date Whitney Monreal MD [email or web address] PCP - General 05/17/1712/23 Katie Pollock MD [address] [address] [email or web address] PCP - General Family Medicine 12/24/21 1 08/24/21 Betsy Pineda MD [address] [place] [phone] PCP - General Internal Medicine 06/25/22 documented as of this encounter Additional Source Comments The information contained in this document represents components of the legal health record. It is not the complete legal health record.[facility]
--- OUTSIDE RECORDS SUMMARY | 2025-06-13 10:54 | XMS_ITS | Encounter Summary ---
Author Organization [facility] Address [address] [place] [address] [place] [phone] Phone Care Team Providers Care Fermenter Wine Name Role Phone Whitney Monreal MD Primary Care Provi lucero Katie Pollock MD Primary Care Provid er Betsy Pineda MD Primary Care Provider Encounter Details Date Type Department Care Team (Late st Contact Info) Description 12/02/2017 Transcribe Orders [address] [address] Whitney Monreal MD [address] [place] [phone] [email or web address] Urinary frequency (Primary Dx) Social History Tobacco Use Types [...] 08/14/2025 8:30 AM EST Appointment [facility] [place] [facility] [address] [place] [address] Kalani Gallegos PA-C [address] [place] [phone] 08/21/2025 10:30 AM EST Office Visit [facility] [address], [address] [place] [address] Kalani Gallegos PA-C [address] [place] [address] documented as of this encounter Results * Urine culture (12/02/2017 10:10 AM EDT) Specimen Source/ Description URINE URINE [facility] Special Requests None [facility] GRAM STAIN Rare GRAM POSITIVE COCCI , Rare WBC'S [facility] Culture/Test 10,000 to 100,000 colony forming units per ml MIXED DARIN (3 OR MORE COLONY TYPES) Culture indicates contamination . Please resubmit if necessary. [facility] Report Status 12/04/2017 FINAL [facility] Urine (Urine) 12/02/2017 10: 10 AM EDT 12/02/2017 10:21 AM EDT us Whitney Monreal MD LAB MICROBIOLOGY CU LTURE ORDERABLES Final Result [facility] [address] [place] [address] * (ABNORMAL) Urinalysis with sediment (12/02/2017 10:10 AM EDT) WBC 11-20(A) NONE SEEN /hpf [facility] RBC 0-2(A) NONE SEEN /hpf [facility] URINE EPITHELIAL 0-4(A) NONE SEEN [facility] MUCUS Trace(A) NONE SEEN /hpf [facility] BACTERIA Trace(A) NONE SEEN [facility] COLOR Yellow Yellow [facility] CLARITY Clear [facility] GLUCOSE Negative Negative [facility] BILI Negative Negative [facility] KETONES Negative Negative [facility] SPECIFIC GRAVITY <1.005 1.005 - 1.030 [facility] BLOOD 1+(A) Negative [facility] PH 6.0 5.0 - 8.0 [facility] Protein-UA Negative Negative [facility] NITRITE Negative Negative [facility] Leukocyte esterase, ur 1+(A) Negative [facility] Urine (Urine) 12/02/2017 10: 10 AM EDT 12/02/2017 10:20 AM EDT us Whitney Monreal MD LAB URINE ORDERABLE S Final Result [facility] [address] [place] [address] documented in this encounter Visit Diagnoses Diagnosis Urinary frequency- Primary documented in this encounter Care Teams Fermenter Wine Relationship Specialty Start Date End Date Whitney Monreal MD [email or web address] PCP - General 05/17/1712/23 Katie Pollock MD [address] [address] [email or web address] PCP - General Family Medicine 12/24/21 1 08/24/21 Betsy Pineda MD [address] [place] [address] Dr [address] [place] [phone] PCP - General Internal Medicine 06/25/22 documented as of this encounter Additional Source Comments The information contained in this document represents components of the legal health record. It is not the complete legal health record.[facility]
--- OUTSIDE RECORDS SUMMARY | 2025-06-13 10:54 | XMS_ITS | Clinical Summary ---
Author Organization [facility] Address [address] [place] [phone] Phone Care Team Providers Care Sample Cutter Name Role Phone Betsy Pineda MD Primary Care Provider Allergies No known active allergies Medications cholecalciferol , vitamin D3, 25 mcg (1,000 unit) capsule 1 capsule daily Active triamcinolone acetonide 0.1 % ointmentIndicat ions:Lichen sclerosus APPLY A PEA SIZED AMOUNT THREE TIMES WEEKLY. 30 g 1 Active pravastatin (PRAVACHOL) 40 MG tabletIndicatio ns:hypercholest erolemia Take 1 tablet (40 mg total) by mouth daily. Indications: high cholesterol 90 tablet 3 2 Active apixaban (ELIQUIS) 5 mg tablet Take 1 tablet (5 mg total) by mouth 2 (two) times a day. 180 tablet 2 2 Active citalopram (CELEXA) 10 MG tablet Take 1 tablet (10 mg total) by mouth daily. 90 tablet 2 2 Active glipiZIDE (GLUCOTROL XL) 2.5 MG 24 hr tabletIndicatio ns:Type 2 diabetes mellitus without complication, without long-term current use of insulin Take 1 tablet (2.5 mg total) by mouth daily with breakfast. 90 tablet 2 2 Active metoprolol succinate (TOPROL-XL) 25 MG 24 hr tablet Take 2 tablets (50 mg total) by mouth daily. 90 tablet 2 2 Active Additional Information Patient taking differently:50 mg Oral Daily,1 50 MG TABLET, Reported on 05/21/2025 losartan-hydroC HLOROthiazide (HYZAAR) 100-25 mg per tablet Take 1 tablet by mouth every morning. 3 Active metFORMIN (GLUCOPHAGE-XR) 500 MG 24 hr tablet Take 1 tablet by mouth daily. 3 Active dilTIAZem (CARDIZEM CD) 180 MG 24 hr capsule Take 2 capsules by mouth every morning. 4 Active estradioL (ESTRACE) 0.01 % (0.1 mg/gram) vaginal creamIndication s:Vaginal atrophy Apply 0.5g four times weekly to vulva 42.5 g 5 Active furosemide (LASIX) 20 MG tablet Take 1 tablet by mouth every morning. 5 Active Active Problems Problem Noted Date Diagnosed Date Peripheral edema 05/21/2025 Assessment & Plan (05/21/2025 4:21 PM EDT): New symptom. Over the past 1 to 2 months, she has had some significant bilateral lower extremity edema which led to a wound right lower lateral leg and cellulitis. She saw her PCP for this who started her on furosemide 20 mg daily, which she is still taking and describes good diuretic effect, and she took an antibiotic for 10 days, had wound follow-up through their office. This is looking better now and almost completely closed with just a very small scab at the site. She does have some mild to moderate edema bilaterally today. She is still taking HCTZ. She has not had labs since starting Lasix so asked patient to obtain a BMP today. Discussed risks of being on both diuretics and patient prefers her PCP to manage this, she sees her PCP next month 06/2025, asked pt to please update labs today. She has no associated symptoms and we reviewed her echo which showed normal BiV function. She is wearing compression regularly as well. Discussed ongoing conservative measures and will obtain a venous duplex which has been ordered. Follow-up once complete. Weight loss would greatly benefit this patient. Dyslipidemia 09/17/2022 Assessment & Plan (05/21/2025 1:47 PM EDT): LDL 54, at goal on pravastatin 40 mg daily which patient is tolerating well. LFTs are normal. Continue without change. Assessment & Plan (10/09/2024 10:05 AM EDT): Most recent labs are over 2 years old in our system. I have requested them from [facility] to ensure lipids at goal and LFTs WNL which patient states they have been. Continue pravastatin 40 mg daily at this time which she is tolerating well. Lifestyle modifications ongoing Assessment & Plan (11/10/2023 5:33 PM EDT): Continue pravastatin. Assessment & Plan (09/17/2022 1:15 PM EST): Patient's most recent LDL from the beginning of September was 72. We will continue her on her current dose of pravastatin. Microalbuminuria due to type 2 diabetes mellitus 05/08/2022 Overview (05/08/2022): Lab Results Component Value Date MALBCRE 30.1 (H) 05/07/2022 GRMALB 3.1 (H) 05/07/2022 Mitral valve insufficiency 04/01/2022 Overview (04/01/2022): Echo 2020 Assessment & Plan (05/21/2025 1:47 PM EDT): Recent echocardiogram reveals mild to moderate mitral regurgitation, mild tricuspid insufficiency, no significant change from prior. Continue serial echoes. Assessment & Plan (10/09/2024 10:04 AM EDT): Previous echo 04/2023 shows moderate MR, no change from prior. Patient is scheduled to have this repeated 03/2025 with follow-up with her game producer thereafter. Patient remains asymptomatic. Assessment & Plan (11/10/2023 5:32 PM EDT): Continue serial echoes. Assessment & Plan (09/17/2022 1:13 PM EST): Patient last had an echocardiogram in 2020 which showed moderate mitral regurgitation. I will have her get an updated echocardiogram before her next appointment. She denies any symptoms at this time. Atrial fibrillation 01/03/2022 Assessment & Plan (05/21/2025 1:42 PM EDT): Patient denies any recent clinical recurrence. She remains adequately anticoagulated on Eliquis 5 mg twice daily without bleeding complaint. She is rate controlled with diltiazem 360 mg and metoprolol 50 mg. She is tolerating her medications well. BMP today. Follow-up in 6 months. Assessment & Plan (10/09/2024 10:03 AM EDT): Patient denies any recent clinical recurrence. She remains adequately anticoagulated on Eliquis 5 mg twice daily without bleeding complaint. She is rate controlled with diltiazem 360 mg and metoprolol 50 mg. She is tolerating her medications very well. I have requested labs from [facility] where she has these drawn every 3 months per report. Follow-up in 6 months time. Assessment & Plan (11/10/2023 5:31 PM EDT): Patient denies any clinical recurrence at this time. EKG in the office today shows sinus rhythm. Patient remains adequately anticoagulated on Eliquis 5 mg twice daily with rate control in the form of diltiazem and metoprolol both on board. Continue to monitor. Assessment & Plan (09/17/2022 1:14 PM EST): She denies any symptoms at this time. We will continue her on her current doses of diltiazem, metoprolol, and Eliquis. She denies any issues with bleeding. Essential hypertension 01/03/2022 Assessment & Plan (05/21/2025 1:44 PM EDT): Blood pressure well-controlled in the office today on metoprolol 50 mg, losartan 100 mg/HCTZ 25 mg, diltiazem 360 mg daily, and now Lasix 20 mg which was added 1 to 2 months ago by PCP for edema, see below. Continue to monitor. Lifestyle measures ongoing. Assessment & Plan (10/09/2024 10:03 AM EDT): Very well-controlled in the office and at home. Continue current medications and doses. Lifestyle modifications ongoing. Labs requested. Assessment & Plan (11/10/2023 5:32 PM EDT): BP mildly elevated in the office, but patient states home readings are at goal. We will continue current medication regimen. Follow-up in 6 months. Assessment & Plan (09/17/2022 1:14 PM EST): Blood pressure today is 146/72. She took her blood pressure at home right before she came in her blood pressure at home was 130/64. We will continue her on her current doses of diltiazem, hydrochlorothiazide, losartan, and metoprolol. Moderate episode of recurrent major depressive d isorder 01/03/2022 Acquired hypothyroidism 01/03/2022 Closed compression fracture of lumbosacral spine 01/03/2022 Type 2 diabetes mellitus wit hout complication, without long-term current use of insulin 01/03/2022 Lichen sclerosus 04/10/2018 Assessment & Plan (01/19/2022 4:54 PM EDT): Doing well with Triamcinolone, continue using 3x weekly. Call PRN for refills. Assessment & Plan (12/04/2020 10:25 AM EDT): Plan to substitute Triamcinolone (listed as tier 2 for [employer]). If symptoms flare with medication change, can consider prior auth for higher potency steroid. Assessment & Plan (04/10/2018 4:22 PM EDT): I reviewed the importance of regular maintenance topical steroid use to prevent symptoms, further scarring, and squamous cell cancer of the vulva. I also explained the importance of regular follow up to ensure she has no evidence of precancerous or cancerous changes and that she is not having side effects from her medication. I reviewed areas of application and amount of medication to use. Continue three times weekly clobetasol. Refill given. Also continue dilator use. Vaginal atrophy 04/10/2018 Assessment & Plan (01/19/2022 4:54 PM EDT): Stable. Continue Estrace, call PRN for refills. Assessment & Plan (12/04/2020 10:26 AM EDT): Call PRN for refills. Assessment & Plan (04/10/2018 4:22 PM EDT): Continue Estrace. Will call if needs refills. Encounters Date Type Department Care Team Description 05/21/2025 1:07 PM EDT - 05/21/2025 11:59 PM EDT Hospital Encounter [facility] [place] [address] Kalani Gallegos PA-C Discharge Disposition: Home or Self Care 05/21/2025 12:30 PM EDT Office Visit [facility] [address], [address] [place] [address] Kalani Gallegos PA-C Edema, unspecified type (Primary Dx); Paroxysmal atrial fibrillation; Essential hypertension; Mitral valve insufficiency, unspecified etiology; Dyslipidemia; Peripheral edema 05/16/2025 9:16 AM EDT - 05/16/2025 11:59 PM EDT Hospital Encounter [facility] [address] [place] [address] Nathan Yoon MD Discharge Disposition: Home or Self Care 04/12/2024 Procedure Pass Echo Lab [address] [place] [address] from Last 3 Months Immunizations Immunization Administration Dates Next Due COVID-19 (Pre-05/23) Pfizer Vaccine, mRNA, PF 12/13/2020,11/22/2020,10/29/2020 Influenza High-Dose Quadriva lent Preservative Free IM 04/29/2021,05/23/2020,05/18/2019,04/11 Influenza High-Dose Trivalen t Preservative Free IM 04/29/2021,05/15/2019 Influenza Quadrivalent Prese rvative Free IM 04/29/2017,05/12/2016 Influenza, Unspecified Formulation 05/03,06/05/2013,04/25/2012,05/27 Pneumococcal conjugate PCV13 09/03/2014 Pneumococcal polysaccharide PPSV23 02/20/2013, Td (adult),2 Lf Tetanus Toxo id, PF, Adsorbed 02/24/2011 Zoster live 02/20/2013 Family History Medical History Relation Comments Stroke Father Cancer Mother spinal tumor Diabetes mellitus Mother Diabetes mellitus Sister 1 Alcohol abuse Sister 2 Relation Status Comments Daughter Alive Father Mother Sister 1 Sister 2 Social History Tobacco Use Types Packs/Day Years Used Date Smoking Tobacco: Never Smokeless Tobacco: Never Tobacco Cessation:Counseling Given: Not Answered Alcohol Use Standard Drinks/Week Comments Yes 2 (1 standard drink = 0.6 oz pur e alcohol) Child or Family Care Answer Date Record ed Do you have problems with on e of the following making it difficult for you to work, study, or receive health care? No 12/24/2021 Education Answer Date Recorded Are you interested in more education? Not on claude e 12/26/2023 Are you concerned about learning? Not on file 12/26/2023 No 12/26/2023 No 12/26/2023 Food Answer Date Recorded Within the past [...] basis, and looking for work? No 12/24/2021 Digital Access Answer Date Recorded No 12/27/2022 No 12/27/2022 Reliable internet access at home? Not on file 12/27/2022 Device with a working camera? Not on file Comments No Sex and Gender Information Value Date Recorded Sex Assigned at Not on file Legal Sex Female 4:26 PM EST Gender Identity Not on file Sexual Orientation Not on file Last Filed Vital Signs Vital Sign Reading Time Taken Comments Blood Pressure 122/64 05/21/2025 12:14 PM EDT Pulse 68 05/21/2025 12:14 PM EDT Temperature 36.7 C (98.1 F) 06/25/2022 6:35 PM EST Respiratory Rate 18 06/25/2022 11:00 PM EST Oxygen Saturation 98% 05/21/2025 12:14 PM EDT Inhaled Oxygen Concentration - - Weight 88.5 kg (195 lb) 05/21/2025 12:14 PM EDT Height 157 cm (5' 1.81 ) 05/21/2025 12:14 PM EDT Body Mass Index 35.88 05/21/2025 12:14 PM EDT Plan of Treatment Upcoming Encounters Date Type Department Care Team (Late st Contact Info) Description 08/14/2025 8:30 AM EST Appointment [facility] [address] [place] [address] Kalani Gallegos PA-C [address] [place] [phone] 08/21/2025 10:30 AM EST Office Visit [facility] [address] [facility], [address] [place] [address] Kalani Gallegos PA-C [address] [place] [phone] Health Maintenance Due Date Last Done Comments DEPRESSION SCREENING 1957 ZOSTER VACCINES (2 of 3) 04/17/2013 02/20/2013 DIABETIC EYE EXAM 06/01/2017 Adult Td,Tdap Booster 02/24/2021 02/24/2011 RSV VACCINE (1 - 1-dose 75+ series) 11/04/2022 HEMOGLOBIN A1C 03/01/2023 09/01/2022, 10/2021, 09/23/2021, Additional history exists INFLUENZA VACCINE (#1) 2025 , 04/29/2021, 05/23/2020, Additional history exists COVID-19 VACCINE (2024- season) 2025 12/13/2020, 11/22/2020, 10/29/2020 BLOOD PRESSURE 11/19/2025 05/21/2025 CREATININE LEVEL 05/21/2026 05/21/2025, 08/2022, 06/26/2022, Additional history exists POTASSIUM LEVEL 05/21/2026 05/21/2025, 08/2022, 06/26/2022, Additional history exists PNEUMOCOCCAL VACCINES (50+ years) Completed 09/03/2014, 02/20/2013, 08/01/2012 OSTEOPOROSIS SCREENING INITIAL (ONE-TIME) Completed 06/30/2021, 06/30/2021 HEPATITIS C SCREENING Completed 05/04/2022 SMOKING STATUS SCREENING (Once After 26 Yrs) Completed 05/21/2025 HEPATITIS A VACCINES Aged Out No long er eligible based on patient's age to complete this topic HIB VACCINES Aged Out No longer eligi ble based on patient's age to complete this topic IPV VACCINES Aged Out No longer eligi ble based on patient's age to complete this topic MENINGOCOCCAL VACCINES (ACWY) Aged Out No longer eligible based on patient's age to complete this topic MENINGOCOCCAL VACCINES (B) Aged Out N o longer eligible based on patient's age to complete this topic Medical Devices Not on file Procedures Procedure Name Priority Date/Time Associated Diagnosis Comments BASIC METABOLIC PANEL (BMP) Routine 05/21/2025 1:11 PM EDT Edema, unspecified type TTE COMPREHENSIVE Routine 05/16/2025 10: 10 AM EDT Mitral valve insufficiency, unspecified etiology HEMOGLOBIN A1C Routine 09/01/2022 9:29 AM EST Microalbuminuria due to type 2 diabetes mellitus HEPATITIS C ANTIBODY, QUALITATIVE Routine 05/04/2022 9:36 AM EDT Need for hepatitis C screening test BD DXA AXIAL (SPINE) WITH HIP Routine 06/30/2021 2:08 PM EST Other specified disorders of bone density and structure, unspecified site from Last 3 Months or Most Recently Relevant to Health Maintenance Results * (ABNORMAL) Basic metabolic panel (05/21/2025 1:11 PM EDT) SODIUM 143 133 - 146 mmol/L [facility] CHLORIDE 106 96 - 108 mmol/L [facility] POTASSIUM 4.4 3.3 - 5.1 mmol/L [facility] CO2 24 21 - 35 mmol/L [facility] BUN 31(H) 6 - 19 mg/dL [facility] CREATININE 0.90 0.5 - 1.5 mg/dL [facility] GLUCOSE 95 70 - 99 mg/dL [facility] CALCIUM 9.9 8.4 - 10.3 mg/dL [facility] EGFR 66 >59 mL/min/1.7 3m2 [facility] Comment:Estimated glomerular filtration rate calculated using the CKD-EPI refit equation. ANION GAP 17 10 - 20 mmol/L [facility] Blood 05/21/2025 1:11 PM EDT 05/21/2025 1:15 PM EDT us Kalani Gallegos PA-C LAB BLOOD BKR ORDERABLES Fin al Result [address] [id number] * TTE COMPREHENSIVE (05/16/2025 10:10 AM EDT) Height 157 cm Weight 96 kg Interventricular Septum Thickness 9 6 - 11 mm Left Ventricle Internal Diameter End Diastole 53 37 - 52 mm Left Ventricle Internal Diameter End Systole 33 <35 mm Left Ventricular Outflow Tract Diameter 19.0 mm Left Ventricular Posterior Wall Thickness 9 6 - 11 mm Left Ventricle Ea Lateral Wave Speed 11.4 cm/s Left Ventricle Ea Septal Wave Speed 8.1 cm/s Ejection Fraction 76 50 - 75 Percent Left Atrium Dimension Anterior-Posterior 43 15 - 40 mm Aortic Valve Mean Gradient 8 mmHg Aortic Valve Time Velocity Integral 458.0 mm Aortic Valve Peak Velocity 1.9 m/s Aortic Valve Peak Gradient 14 mmHg Aortic Arch Diameter 27 mm Aortic Sinus Diameter 27 <40 mm Ascending Aorta Diameter 30 <36 mm Inferior Vena Cava Diameter 16 <21 mm Mitral Valve Deceleration Time 169 ms Left Ventricle A Wave Speed 72.2 cm/s Left Ventricle E Wave Speed 88.1 cm/s Pulmonary Valve Peak Velocity 1.0 m/s Pulmonary Valve Peak Gradient 4 mmHg Right Ventricle Basal Diameter 31 25 - 41 mm Tricuspid Valve Peak Velocity 3.0 m/s Raw LV EF% 61 % MV E/E' Tissue Velocity Lateral 7.73 Relative Wall Thickness 0.34 0.22 - 0.42 MV E/A ratio 1.2 MV E/e' septal 10.88 Left Ventricle E/e' Average 9.3 Aortic Valve Prosthetic Peak Gradient 14 mmHg Aortic Valve Prosthetic Mean Gradient 8 mmHg Aorta Sinus Index by Height 1.72 cm/m Aorta Sinus CSA index by Height 3.65 cm2/m Asc Aorta CSA Index by Height 4.50 cm2/m Right Ventricle to Right Atrium Pressure Gradient 36 mmHg Right Ventricle Peak Systolic Pressure (Assuming RAP 10) 46 mmHg MGB CV ECHO TV RVSP (ASSUMING RAP OF 5) 41 mmHg RVSP (Exclusive of RAP) 36 mmHg Pulmonic Valve Prosthetic Peak Gradient 4 mmHg Echo E/Ea 10.88 Body Surface Area 1.96 m2 Left Ventricle indexed to BSA 89.0 g/m2 Left Ventricular Outflow Tract Velocity 1.0 m/s LVOT VTI REST 24.0 cm Aortic Valve Sinus Index by BSA 14 mm/m2 Ascending Aorta Index 15 mm/m2 MGB CV AV DIMENSIONLESS INDEX (PEAK) - STRESS ECHO DOBUT - REST 0.53 Ascending Aorta Index 15 mm Aortic Sinus Index 14 mm Ascending Aorta Diameter 15 mm Aortic Valve Sinus Index 1 14 19 - 27 mm AO ASC DIAM BSA INDEX 15.31 Right Ventricle Peak Systolic Pressure 39 mmHg Right Atrium Pressure Estimated 3 mmHg Anatomical Region Laterality Modality Heart Ultrasound Narrative 05/17/2025 8:13 AM EDT Images from the original result were not included. 1. The indication is mitral regurgitation. The estimated ejection fraction of left ventricle is normal to hyperdynamic at 65 to 70%. Diastolic function was normal regional wall motion was normal and there is normal left ventricular thickness. 2. Normal RV size and function. 3. Trileaflet aortic valve there is no evidence of aortic stenosis, the ascending aortic root is normal in size the mean gradient across the aortic valve is 8 mmHg. There is aortic valve sclerosis without stenosis. 4. Mild to moderate central mitral regurgitation there is mild tricuspid insufficiency, the PA pressure is mildly elevated at 39 mmHg. 5. Normal and when compared to the prior echo done in April 2023 there is no significant change to the degree of mitral regurgitation. Left Ventricle The left ventricle is normal in size. There is normal wall thickness. There is normal left ventricular systolic function. The LV ejection fraction is 65-70% (visually estimated). LV diastolic function appears within normal limits for age. Right Ventricle The right ventricle is normal in size. There is normal right ventricular systolic function. Left Atrium The left atrium is normal in size. Right Atrium The right atrium is normal in size. The IVC is normal in size with normal inspiratory collapse. Mitral Valve The mitral valve appears normal. There is mitral annular calcification. There is no mitral stenosis. There is mild to moderate mitral regurgitation. Tricuspid Valve The tricuspid valve appears normal. There is no tricuspid stenosis. There is mild tricuspid regurgitation. The RV systolic pressure was calculated at 39 mmHg (using TR peak velocity of 3.0 m/s and assuming an RA pressure of 3 mmHg). Aortic Valve The aortic valve is tricuspid. There is leaflet calcification. There is aortic sclerosis without significant stenosis. The aortic valve peak velocity is 1.9 m/s. The peak and mean aortic valve gradients are 14 mmHg and 8 mmHg respectively. There is no aortic regurgitation. The visualized portions of the thoracic aorta appear normal in size. Pulmonic Valve The pulmonic valve appears normal. There is no pulmonic stenosis. There is trace pulmonic regurgitation. Pericardium There is no pericardial effusion. General Findings The image quality was fair (3). Technique(s) used in the evaluation: Multiplane, Color flow Doppler, Spectral Doppler and Epiaortic scan. Comparison Findings Compared to prior TTE report on 04/01/2023, IAS/IVS The interatrial septum appears normal. There is no evidence of patent foramen ovale (PFO). The interventricular septum appears normal. us Nathan Yoon MD CV ECHO ORDERABLES Final Resu lt * (ABNORMAL) Hemoglobin A1c (09/01/2022 9:29 AM EST) HEMOGLOBIN A1C 7.8(H) 4.3 - 5.8 % [facility] Blood 09/01/2022 9:29 AM EST 09/01/2022 9:34 AM EST us Betsy Pineda MD LAB BLOOD BKR ORDERABL ES Final Result Performing Organization Address City/[facility]/ZIP Co de Phone Number [address] [address] * Hepatitis C antibody, qualitative (05/04/2022 9:36 AM EDT) HCV NON-REACTIV E NON-REACTI VE [facility] Blood 05/04/2022 9:36 AM EDT 05/04/2022 9:39 AM EDT us Katie Pollock MD LAB BLOOD BKR ORDERA BLES Final Result Performing Organization Address City/[facility]/ZIP Co de Phone Number [address] [address] * BD DXA AXIAL (SPINE) WITH HIP [...] bone mineral density was calculated at 0.967 [id number] a T- score of 1.1 falling within [...] in bilateral hip bonedensity since 2013. Whitney Monreal MD IMG BD BONE DENSITY DEXA Final Result from Last 3 Months or Most Recently Relevant to Health Maintenance Insurance [employer] Care Teams Sample Cutter Relationship Specialty Start Date End Date Betsy Pineda MD [address] [place] [address] [place] [phone] PCP - General Internal Medicine 06/25/22 Additional Source Comments The information contained in this document represents components of the legal health record. It is not the complete legal health record.[facility]
--- OUTSIDE RECORDS SUMMARY | 2025-06-13 10:55 | XMS_ITS | Encounter Summary ---
Author Organization [facility] Address [address] [place] [address] [place] [phone] Phone Care Team Providers Care Packaging Engineer Name Role Phone Whitney Monreal MD Primary Care Provi lucero Katie Pollock MD Primary Care Provid er Betsy Pineda MD Primary Care Provider Encounter Details Date Type Department Care Team (Late st Contact Info) Description 01/22/2020 Transcribe Orders [address] [address] Whitney Monreal MD [address] [place] [address] [email or web address] Type 2 diabetes mellitus without complication, unspecified whether intermediate insulin use (Primary Dx) Social History Tobacco [...] 08/14/2025 8:30 AM EST Appointment [facility] [address]rd [place] [address] Kalani Gallegos, PAArielC [address] [place] [address] 08/21/2025 10:30 AM EST Office Visit [facility] [address]rd Floor, [address] [place] [address] Kalani Gallegos PA-C [address] [place] [address] documented as of this encounter Results * (ABNORMAL) Hemoglobin A1c (01/22/2020 8:50 AM EDT) Pathologist [facility] HEMOGLOBIN A1C 6.9(H) 4.3 - 5.8 % [facility] Blood 01/22/2020 8:50 AM EDT 01/22/2020 11:32 AM EDT Whitney Monreal MD LAB BLOOD BKR ORDER ANNETTE Final Result [facility] [address] [place] [address] * (ABNORMAL) CBC and differential (01/22/2020 8:50 AM EDT) [facility] WBC 7.47 4.00 - 11.00 K/uL [facility] Comment:Note Reference Range updates to all CBC and Differential results. RBC 4.84 3.72 - 5.30 M/uL [facility] HGB 14.8 11.4 - 15.9 g/dL [facility] Comment:Note updated Referen ce Ranges for all CBC and Differential results. HCT 41.4 34.2 - 46.8 % [facility] PLT 339 140 - 430 K/uL [facility] MCV 85.5 78.0 - 97.0 fL [facility] MCH 30.6 25.0 - 33.0 pg [facility] MCHC 35.7 32.0 - 36.0 g/dL [facility] RDW 12.4 11.0 - 16.0 % [facility] MPV 10.1 8.4 - 12.8 fl [facility] NRBC 0.00 0 /100 WBCs [facility] ABSOLUTE NRBC 0.00 0 K/uL [facility] DIFF METHOD Auto [facility] NEUTS 43.2 43.0 - 75.0 % [facility] LYMPHS 39.6 18.2 - 47.4 % [facility] MONOS 9.6 4.00 - 11.00 % [facility] EOS 5.9 0.0 - 8.0 % [facility] BASOS 1.3 0.0 - 2.0 % [facility] Granulocytes, immature (%) 0.4 0.0 - 0.9 % [facility] ABSOLUTE NEUTS 3.22 1.80 - 7.70 K/uL [facility] ABSOLUTE LYMPHS 2.96 1.00 - 3.10 K/uL [facility] ABSOLUTE MONOS 0.72 0.20 - 0.80 K/uL [facility] ABSOLUTE EOS 0.44 0.00 - 0.80 K/uL [facility] ABSOLUTE BASOS 0.10(H) 0.00 - 0.09 K/uL [facility] Granulocytes, immature 0.03 0.00 - 0.05 K/uL [facility] Blood 01/22/2020 8:50 AM EDT 01/22/2020 11:32 AM EDT us Whitney Monreal MD LAB BLOOD BKR ORDER ANNETTE Final Result [address] [address] * TSH with reflex (01/22/2020 8:50 AM EDT) TSH 3.85 0.27 - 4.20 uIU/mL [facility] Blood 01/22/2020 8:50 AM EDT 01/22/2020 11:32 AM EDT us Whitney Monreal MD LAB BLOOD BKR ORDER ANNETTE Final Result [address] [address] * (ABNORMAL) Comprehensive metabolic panel (01/22/2020 8:50 AM EDT) SODIUM 137 133 - 146 mmol/L [facility] POTASSIUM 4.1 3.3 - 5.1 mmol/L [facility] CHLORIDE 102 96 - 108 mmol/L [facility] CO2 24 21 - 35 mmol/L [facility] BUN 20(H) 6 - 19 mg/dL [facility] CREATININE 0.90 0.5 - 1.5 mg/dL [facility] GLUCOSE 128(H) 70 - 99 mg/dL [facility] ALBUMIN 4.4 3.9 - 4.8 g/dL [facility] TOTAL PROTEIN 7.1 6.5 - 8.0 g/dL [facility] CALCIUM 9.7 8.4 - 10.3 mg/dL [facility] ALKALINE PHOSPHATASE 56 39 - 117 U/L [facility] TOTAL BILIRUBIN 0.6 0.0 - 1.2 mg/dL [facility] AST 32 0 - 37 U/L [facility] ALT 22 0 - 40 U/L [facility] GLOBULIN 2.7 1 - 4.8 g/dL [facility] EGFR 64 >59 mL/min/1.7 3m2 [facility] Comment:Estimated glomerular filtration rate calculated using the CKD-EPI equation. ANION GAP 15 10 - 20 mmol/L [facility] Blood 01/22/2020 8:50 AM EDT 01/22/2020 11:32 AM EDT us Whitney Monreal MD LAB BLOOD BKR ORDER ANNETTE Final Result [address] [phone] documented in this encounter Visit Diagnoses Diagnosis Type 2 diabetes mellitus without complication, unspecified whether regional intermodal truck driver insulin use- Primary documented in this encounter Care Teams Packaging Engineer Relationship Specialty Start Date End Date Whitney Monreal MD [email or web address] - General 05/17/1712/23 Katie Pollock MD [address] [address] [email or web address] - General Family Medicine 12/24/21 1 08/24/21 Betsy Pineda MD [address] [place] [phone] PCP - General Internal Medicine 06/25/22 documented as of this encounter Additional Source Comments The information contained in this document represents components of the legal health record. It is not the complete legal health record.[facility]
--- OUTSIDE RECORDS SUMMARY | 2025-06-13 10:55 | XMS_ITS | Encounter Summary ---
Author Organization [facility] Address [address] [place] [phone] Phone Care Team Providers Care Dental Floss Packer Name Role Phone Whitney Monreal MD Primary Care Provi lucero Katie Pollock MD Primary Care Provid er Betsy Pineda MD Primary Care Provider Reason for Referral * Outpatient Procedure - Closed Specialty Diagnoses / Procedures Referred By Jorge campbell Referred To Contact Diagnoses New onset a-fib Procedures Adult Echo TTE Whitney Monreal MD Phone: tel: [email or web address] Referral ID Status Reason Start Date Expiration Date Visits Re quested Visits Authorized [id number] Closed 10/01/2020 10/01/2021 1 1 Encounter Details Date Type Department Care Team (Late st Contact Info) Description 10/01/2020 Ancillary Orders Virtual Department [address] [place] [address] Whitney Monreal MD [address] [place] [address] [email or web address] New onset a-fib Social History Tobacco Use Types Packs/Day Years [...] 08/14/2025 8:30 AM EST Appointment [facility] [place] [address] [place] [address] Kalani Gallegos PA-C [address] [place] [address] 08/21/2025 10:30 AM EST Office Visit [facility] [address], [address] [place] [address] Kalani Gallegos PA-C [address] [place] [phone] documented as of this encounter Results * TTE COMPREHENSIVE (10/20/2020 8:48 AM EDT) Body Surface Area 1.9 m2 Height 158 cm Weight 86 kg Systolic BP 140 mmHg Diastolic BP 80 mmHg Left Atrium Dimension Anterior-Posterior 35 15 - 40 mm Aortic Valve Peak Velocity 147.0 cm/s Aortic Valve Peak Gradient 9 mmHg Aortic Sinus Diameter 24 mm Ascending Aorta Diameter 26 mm Inferior Vena Cava Diameter 11 0.0 - 21 mm Interventricular Septum Thickness 7 mm Left Ventricle Internal Diameter End Diastole 49 37 - 52 mm Left Ventricle Internal Diameter End Systole 30 22 - 35 mm Left Ventricular Outflow Tract Diameter 16.0 mm LVOT VTI REST 236 mm Left Ventricular Outflow Tract Velocity 1.1 m/s Left Ventricular Outflow Tract Gradient at Rest 4 mmHg Left Ventricular Posterior Wall Thickness 9 mm Ejection Fraction 68 50 - 75 Percent Mitral Valve Deceleration Time 148 ms Mitral Valve A Wave Speed 112.0 cm/s Mitral Valve E Wave Speed 87.3 cm/s Right Ventricle Basal Diameter 26.1 25 - 41 mm Tricuspid Valve Peak Velocity 3.0 m/s Raw LV EF% 63 % Left Atrial Volume 51 mL Left Atrial Volume Index 26.84 mL/m2 Right Ventricle Peak Systolic Pressure 39 mmHg Right Atrium Pressure Estimated 3 mmHg Right Ventricle to Right Atrium Pressure Gradient 36 mmHg Aortic Valve Sinus Index 1 13 19 - 27 mm Ascending Aorta Diameter 14 mm Aortic Sinus Index 13 mm Ascending Aorta Index 14 mm Right Ventricle TAPSE 18.0 mm Right Ventricle Pulse Doppler S Wave 16.3 cm/s Anatomical Region Laterality Modality Heart Ultrasound Narrative 10/21/2020 7:29 AM EDT This patient was imaged during atrial fibrillation the image quality was poor. Overall the left ventricular ejection fraction is probably normal at 65% with no regional wall motion abnormality. The left atrium is moderately dilated we cannot tell if this is a trileaflet or bileaflet aortic valve there is moderate mitral regurgitation seen and the PA pressure is mildly elevated there is no prior echo available for comparison Left Ventricle The left ventricular cavity size and wall thickness are normal. Left ventricular systolic function is normal. There are no segmental left ventricular wall motion abnormalities noted. The estimated ejection fraction is 68% (Normal 50-75%). The left ventricular ejection fraction was measured by the single dimension method. Left ventricular diastolic function could not be adequately assessed. There is no evidence of left ventricular thrombus. Right Ventricle The right ventricular size is normal. The right ventricular systolic function is normal. Left Atrium The left atrium is normal in size. The left atrial anterior-posterior dimension measures 35 mm (normal 15-40 mm). The LA volume is 51 mL. The LA volume index is 26.84 mL/m2 (normal indexed value is 16-34 mL/m2). The pulmonary venous flow profiles are normal. Right Atrium The right atrium is normal in size. The IVC is normal in size (2.1cm or less). The IVC measures 11 mm (normal <=21 mm). The IVC demonstrates normal collapse with inspiration which is consistent with normal RA pressure. Mitral Valve The mitral valve appears normal. The E/A ratio is 0.8. The Med E' Yordy is 9.0 cm/s and the Lat E' Yordy is 9.7 cm/s. The E/e' AVG is 9.3. There is no evidence of mitral stenosis. There is moderate mitral regurgitation detected by spectral and color Doppler. Tricuspid Valve The tricuspid valve appears normal. There is no evidence of tricuspid stenosis. There is evidence of mild tricuspid regurgitation by color and spectral Doppler. Mildly elevated pulmonary pressure. The RV systolic pressure was estimated from the peak TV regurgitant velocity. The estimated RV systolic pressure is 39 mmHg assuming a right atrial pressure of 3 mmHg. The calculated peak RV-RA pressure gradient is 36 mmHg. Aortic Valve The aortic valve was not well visualized. The aortic valve appears normal. The morphology of the valve (tricuspid vs bicuspid) cannot be determined. There is no evidence of valvular aortic stenosis. The peak aortic valve gradient is 9 mmHg. There is no evidence of aortic regurgitation by color and spectral Doppler. The visualized portions of the thoracic aorta appear normal. Pulmonic Valve Pulmonary valve was not well visualized. The pulmonary valve appears normal. There is no evidence of pulmonic stenosis. There is evidence of trace pulmonary regurgitation by color and spectral Doppler. Pericardium There is no evidence of pericardial effusion. Interatrial Septum The interatrial septum appears normal. General Findings The image quality was fair (3). Technique(s) used in the evaluation: Color flow Doppler and Spectral Doppler. The predominant rhythm during the study was atrial fibrillation. Comparison Findings No prior studies for comparison. Whitney Monreal MD CV ECHO ORDERABLES Final Result documented in this encounter Visit Diagnoses Diagnosis New onset a-fib Atrial fibrillation New onset a-fib Atrial fibrillation documented in this encounter Care Teams Dental Floss Packer Relationship Specialty Start Date End Date Whitney Monreal MD [email or web address] PCP - General 05/17/1712/23 Katie Pollock MD [address] [place] [phone] [email or web address] - General Family Medicine 12/24/21 1 08/24/21 Betsy Pineda MD [address] [place] [phone] PCP - General Internal Medicine 06/25/22 documented as of this encounter Additional Source Comments The information contained in this document represents components of the legal health record. It is not the complete legal health record.[facility]
--- OUTSIDE RECORDS SUMMARY | 2025-06-13 10:55 | XMS_ITS | Encounter Summary ---
Author Organization [facility] Address [address] [address] Phone Care Team Providers Care Adjunct Art History Instructor Name Role Phone Betsy Pineda MD Primary Care Provider Encounter Details Date Type Department Care Team (Late st Contact Info) Description 04/12/2024 Procedure Pass Echo Lab [facility] [place] [address] Social History Tobacco Use Types Packs/Day Years [...] 08/14/2025 8:30 AM EST Appointment [facility] [place] [place] [address] Kalani Gallegos PA-C [address] [place] [address] 08/21/2025 10:30 AM EST Office Visit [facility] [address] [facility] 3rd Floor, [address] [place] [address] Kalani Gallegos PA-C [address] [place] [address] documented as of this encounter Visit Diagnoses Not on filedocumented in this encounter Care Teams Adjunct Art History Instructor Relationship Specialty Start Date End Date Betsy Pineda MD [address] [place] [address] [facility] [place] [phone] PCP - General Internal Medicine 06/25/22 documented as of this encounter Additional Source Comments The information contained in this document represents components of the legal health record. It is not the complete legal health record.[facility]
--- OUTSIDE RECORDS SUMMARY | 2025-06-13 10:55 | XMS_ITS | Encounter Summary ---
Author Organization [facility] Address [address] [place] [address] [place] [address] Phone Care Team Providers Care Food Quality Technician Name Role Phone Whitney Monreal MD Primary Care Provi lucero Katie Pollock MD Primary Care Provid er Betsy Pineda MD Primary Care Provider Encounter Details Date Type Department Care Team (Late st Contact Info) Description 11/22/2017 Transcribe Orders [facility] [address] [place] [address] Whitney Monreal MD [address] [place] [address] [email or web address] Type 2 diabetes mellitus without complication, unspecified half-way insulin use status (Primary Dx); Hypertension, unspecified type Social History Tobacco Use Types [...] 08/14/2025 8:30 AM EST Appointment [facility] [place] [address] [place] [address] [address] [place] [address] Kalani Gallegos PA-C [address] [place] [phone] 08/21/2025 10:30 AM EST Office Visit [facility] [address] Floor, [address] [place] [address] Kalani Gallegos PA-C [address] [place] [address] [email or web address] documented as of this encounter Results * (ABNORMAL) Hemoglobin A1c (11/22/2017 11:52 AM EDT) HEMOGLOBIN A1C 6.4(H) 4.3 - 5.8 % [facility] Blood 11/22/2017 11:5 2 AM EDT 11/22/2017 11:55 AM EDT Whitney Monreal MD LAB BLOOD BKR ORDER ANNETTE Final Result [facility] [address] [place] [address] * (ABNORMAL) Basic metabolic panel (11/22/2017 11:52 AM EDT) SODIUM 136 133 - 146 mmol/L [facility] CHLORIDE 94(L) 96 - 108 mmol/L [facility] POTASSIUM 3.6 3.3 - 5.1 mmol/L [facility] CO2 24 21 - 35 mmol/L [facility] BUN 14 6 - 19 mg/dL [facility] CREATININE 0.60 0.5 - 1.5 mg/dL [facility] GLUCOSE 105(H) 70 - 99 mg/dL [facility] CALCIUM 9.6 8.4 - 10.3 mg/dL [facility] EGFR 92 >59 mL/min/1.7 3m2 [facility] Comment:If patient is black, multiply result by 1.159. The eGFR calculation has changed from the MDRD equation to the CKD-EPI equation as of October 04, 2017. ANION GAP 22(H) 10 - 20 mmol/L [facility] Blood 11/22/2017 11:5 2 AM EDT 11/22/2017 11:55 AM EDT Whitney Monreal MD LAB BLOOD BKR ORDER ANNETTE Final Result [facility] [address] [place] [address] documented in this encounter Visit Diagnoses Diagnosis Type 2 diabetes mellitus without complication, unspecified half-way insulin use status- Primary Hypertension, unspecified type documented in this encounter Care Teams Food Quality Technician Relationship Specialty Start Date End Date Whitney Monreal MD [email or web address] PCP - General 05/17/1712/23 Katie Pollock MD [address] [place] [phone] [email or web address] PCP - General Family Medicine 12/24/21 1 08/24/21 Betsy Pineda MD [address] [place] [address] [place] [phone] PCP - General Internal Medicine 06/25/22 documented as of this encounter Additional Source Comments The information contained in this document represents components of the legal health record. It is not the complete legal health record.[facility]
--- OUTSIDE RECORDS SUMMARY | 2025-06-13 10:55 | XMS_ITS | Encounter Summary ---
Author Organization [facility] Address [address] [place] [address] [place] [phone] Phone Care Team Providers Care Shoe Lay Out Planner Name Role Phone Whitney Monreal MD Primary Care Provi lucero Katie Pollock MD Primary Care Provid er Betsy Pineda MD Primary Care Provider Encounter Details Date Type Department Care Team (Late st Contact Info) Description 01/29/2020 Ancillary Orders Virtual Department 30 [place] [address] Whitney Monreal MD [address] [place] [address] [email or web address] Pain in right lower leg; Pain and swelling of lower leg, right Social History Tobacco Use Types Packs/Day Years [...] 08/14/2025 8:30 AM EST Appointment [facility] [place] [facility] [address] [place], [place] [phone] Kalani Gallegos PAJeannette [address] [place] [address] 08/21/2025 10:30 AM EST Office Visit [facility] [address], [address] [place] [address] Kalani Gallegos PA-C [address] [place] [address] documented as of this encounter Results * US Lower Extremity Veins Duplex (Right) (01/29/2020 2:55 PM EDT) Anatomical Region Laterality Modality Hip Right, Thigh Right, Knee Right, Leg Right, Ankle Right, Foot Right Ultrasound 01/29/2020 3:10 PM EDT Impressions 01/29/2020 3:11 PM EDT No evidence of deep venous thrombosis at or above the level of the knee. POS [id number] Narrative 01/29/2020 3:11 PM EDT Color duplex Doppler evaluation of the right thigh and upper calf and the posterior tibial vein in the lower calf was performed. The deep venous tree was widely patent, completely compressible, and displayed normal color and spectral Doppler venous flow characteristics with augmentation of flow elicited upon provocative maneuvers. No popliteal cyst was demonstrated. Procedure Note Escobar Millan MD - 01/29/2020 Color duplex Doppler evaluation of the right thigh and upper calf and theposterior tibial vein in the lower calf was performed. The deep venoustree was widely patent, completely compressible, and displayed normalcolor and spectral Doppler venous flow characteristics with augmentationof flow elicited upon provocative maneuvers. No popliteal cyst wasdemonstrated. IMPRESSION: No evidence of deep venous thrombosis at or above the level of the knee. POS [id number] Whitney Monreal MD CV US VASCULAR Fin al Result documented in this encounter Visit Diagnoses Diagnosis Pain in right lower leg Pain and swelling of lower leg, right Pain in right lower leg Pain and swelling of lower leg, right documented in this encounter Care Teams Shoe Lay Out Planner Relationship Specialty Start Date End Date Whitney Monreal MD [email or web address] PCP - General 05/17/1712/23 Katie Pollock MD [address] [place] [phone] [email or web address] PCP - General Family Medicine 12/24/21 1 08/24/21 Betsy Pineda MD [address] [place] [phone] PCP - General Internal Medicine 06/25/22 documented as of this encounter Additional Source Comments The information contained in this document represents components of the legal health record. It is not the complete legal health record.[facility]
[2025-06-13 11:42] LABS: Alanine Aminotransferase 22 U/L (0-31); Albumin Level 4.3 g/dL (3.5-5.0); Alkaline Phosphatase 58 U/L (39-117); Anion Gap 11 (12-20); Aspartate Amino Transferase 26 U/L (5-31); Blood Urea Nitrogen 23 mg/dL (9-16); Calcium 9.5 mg/dL (8.4-10.2); Carbon Dioxide 28 mmol/L (22-29); Chloride 108 mmol/L (96-108); Estimated Glomerular Filt Rate 57; Potassium 4.5 mmol/L (3.3-5.1); Sodium 142 mmol/L (135-145); Total Protein 7.0 g/dL (6.5-8.0)
== END 2025-06-13 09:28 | disposition home or self-care (01) ==
LOC: HO.10HDL 09:27
PROVIDERS: Visit Provider Internal Medicine
DX: E03.8 Other specified hypothyroidism (principal); E11.9 Type 2 diabetes mellitus without complications; I89.0 Lymphedema, not elsewhere classified; Z79.01 Long term (current) use of anticoagulants
CPT/HCPCS: 36415; 80053; 83036; 85025